=== PATIENT | female | born 1970 | race Caucasian/White ===

== ENCOUNTER → 2017-11-19 | Outpatient (CLI) | payer OTHER ==
--- NOTE | 2017-11-19 08:35 | DIAGNOSTIC IMAGING REPORT ---
GI SERIES W/AIR ROUTINE CLINICAL HISTORY: CYCLICAL VOMITINGnausea. Vomiting. COMPARISON STUDY: None FLUOROSCOPY TIME: 3.6 minutes. FINDINGS: The patient initiates swallowing function well. Esophagus is normal in course and caliber. There is a small hiatal hernia. There is moderate gastroesophageal reflux. Size and configuration stomach are normal. Duodenal bulb fills well and is negative for ulceration. Duodenal sweep is unremarkable. IMPRESSION: 1. Hiatal hernia. 2. Significant gastroesophageal reflux to the proximal one third of the esophagus. 3. Study is otherwise negative. The above report was generated using voice recognition software. It may contain grammatical, syntax or spelling errors. Electronically signed by: Florencio Mcdaniels M.D. 11/19/2017 8:33 AM Dictated Date/Time: 11/19/2017 8:32 AM
== END | disposition home or self-care (01) ==
LOC: C.RAD 08:00
PROVIDERS: ATTEND Internal Medicine Gastroenterology
DX: G43.A0 Cyclical vomiting, in migraine, not intractable (principal); K44.9 Diaphragmatic hernia without obstruction or gangrene; K21.9 Gastro-esophageal reflux disease without esophagitis

== ENCOUNTER → 2018-02-07 | Outpatient (CLI) | payer OTHER ==
--- NOTE | 2018-02-07 08:53 | DIAGNOSTIC IMAGING REPORT ---
(BARIUM SWALLOW) ESOPHAGUS CLINICAL HISTORY: VOMITING COMPARISON STUDY: Upper GI series 11/19/2017. FLUOROSCOPY TIME: 3.6 minutes.. 2 fluoroscopic spot images of the esophagus. FINDINGS: Contrast immediately passed into the esophagus into the stomach. There is no delay or residual contrast within the esophagus. IMPRESSION: Normal study. No delayed emptying into the stomach. Electronically signed by: Markell Payton M.D. 02/07/2018 8:39 AM Dictated Date/Time: 02/07/2018 8:37 AM
== END | disposition home or self-care (01) ==
LOC: C.RAD 08:08
PROVIDERS: ATTEND Student in an Organized Health Care Education/Training Program
DX: K22.4 Dyskinesia of esophagus (principal); G43.A0 Cyclical vomiting, in migraine, not intractable

== ENCOUNTER 2019-01-11 21:39 | Observation (INO) ==
[2019-01-11 22:50] LABS: Basophils # (auto) 0.04 K/uL (0-0.2); Basophils % (auto) 0.3 %; Eosinophils # (auto) 0.22 K/uL (0-0.5); Eosinophils % (auto) 1.5 %; Hematocrit (blood only) 34.6 % (37-47); Hemoglobin 12.1 g/dL (12.0-16.0); Immature Granulocytes # (auto) 0.04 K/uL (0.00-0.02); Immature Granulocytes % (auto) 0.3 %; Lymphocytes # (auto) 3.93 K/uL (1.2-3.4); Mean Corpuscular Volume 98.6 fL (80-100); Mean Platelet Volume 9.6 fL (7.4-10.4); Monocytes # (auto) 1.31 K/uL (0.11-0.59); Monocytes % (auto) 8.7 %; Neutrophils % (auto) 63.2 %; Platelet Count 314 K/uL (130-400); RDW Coefficient of Variation 13.5 % (11.5-14.5); RDW Standard Deviation 48.2 fL (36.4-46.3); Red Blood Count 3.51 M/uL (4.2-5.4); White Blood Count 15.14 K/uL (4.8-10.8)
[2019-01-11] MEDS ORDERED: SODIUM CHLORIDE 0.9% 1000ML 1,000 ML IV ONE (23:02)
[2019-01-11] MEDS ORDERED: MoRPHine SULFATE 10 MG/ML CARP/VIAL IV STA (23:02)
[2019-01-11 23:10] LABS: Albumin Level 3.4 gm/dl (3.4-5.0); BUN Creatinine Ratio 23.6 (10-20); Bilirubin Direct 0.1 mg/dl (0-0.2); Calcium 8.5 mg/dl (8.5-10.1); Creatinine Clr Calc Pharmacy 70.7 ml/min; Est GFR (African American) 98.8; Est GFR (Non-African American) 85.3; Potassium 3.5 mmol/L (3.5-5.1)
[2019-01-11 23:13] LABS: Bilirubin,Total 0.3 mg/dl (0.2-1); Globulin 3.3 gm/dl (2.5-4.0); Total Protein 6.7 gm/dl (6.4-8.2)
[2019-01-12] MEDS ORDERED: CIPROFLOXACIN 500 MG TAB PO STA (00:18)
[2019-01-12] MEDS ORDERED: metroNIDAZOLE 250 MG TAB PO STA (00:18)
[2019-01-12 00:31] LABS: Appearance Urine Cloudy (Clear); Bacteria Urine Automated Negative (Negative); Bilirubin Urine Negative (Negative); Blood Urine 1+ (Negative); Color Urine Yellow; Epithelial Cell Urine Auto >30 /lpf (0-5); Glucose Urine UA Negative (Negative); Ketones Urine Negative (Negative); Leukocyte Esterase Urine 2+ (Negative); Nitrite Urine Negative (Negative); Protein Urine Negative (Negative); Specific Gravity Urine 1.017 (1.000-1.030); Urobilinogen Urine Negative (Negative)
[2019-01-12] MEDS ORDERED: ONDANSETRON INJ 2 MG/ML 2 ML VIAL IV STA (00:37)
[2019-01-12] MEDS ORDERED: SODIUM CHLORIDE 0.9% 1000ML 500 ML IV ONE (00:37)
[2019-01-12] MEDS ORDERED: MoRPHine SULFATE 10 MG/ML CARP/VIAL IV STA (01:28)
[2019-01-12 01:45] LABS: Pregnancy Test, Urine Negative (Negative)
--- NOTE | 2019-01-12 02:11 | History & Physical Report ---
Date of Service January 12, 2019 Assessment & Plan (1) Epigastric abdominal pain: (2) History of ERCP: (3) Nausea: (4) Gastroparesis: (5) Spleen absent: (6) Cervical facet syndrome: (7) Hereditary spherocytosis: History of Present Illness Chief Complaint: Epigastric abdominal pain Primary Care Provider: Heidi Castle MD 48-year-old female with a past medical history hereditary spherocytosis, gastroparesis, colitis, C2-3 degenerative disc disease, colitis, pancreatic cyst, chronic pain syndrome, who presents to our ER with severe epigastric abdominal pain. She had an ERCP on 329 secondary to abnormal LFTs and suspected sphincter of Oddi dysfunction. She had a Botox injection to the pylorus, a pancreatic duct stent in the common bile duct stent placed by Dr. Marroquin. I n the ER they were unable to maintain her pain control so they asked us to place the patient under observation and continued care. She originally called Dr. Marroquin and he told her to report to the emergency room. She was found a white blood cell count of 15 and mild dehydration. Assessment and Plan Epigastric abdominal pain Status post ERCP on 01/10 with stent to the common bile duct and stent the pancreatic duct, Botox injection to the pylorus for duodenal spasm Gastroparesis Leukocytosis Nausea with retching Hypokalemia Hereditary spherocytosis Cervical facet syndrome I started the patient on Reglan 10 mg IV every 6 hours, Protonix 40 mg IV every 12, n.p.o. except for chips sips and meds, GI evaluation with Dr. Marroquin, monitor daily labs, GI cocktail every 6, morphine for pain, high index of suspicion of inflammation post ERCP, D5 normal with potassium, IV Toradol. ROS-No Headache, No Visual Changes, No Fever, No Chills, No Neck Pain or Stiffness, No Chest Pain, No Palpitations, No SOB, No HENNING, No Cough, No Sputum, No Wheezing, positive abdominal Pain radiating into the back around the right side, No Diarrhea, No Hematemesis, No Hemoptysis, No Unexpected Weight Loss, No Flank pain, No Melena, No Hematochezia, No Frequency, No Urgency, positive burning, No Hematuria, No Rashes, No Diaphoresis. Appetite is poor, positive nausea and retching Physical Exam Gen-AAO x 3, mild distress, Afebrile Head-NCAT, EOMI, PERRLA, Anicteric Sclera, No Posterior Pharyngeal Erythema Neck-Supple, No JVD, No Thyromegaly, No Masses, No LAD, No Bruits Lungs-Clear to Auscultation Bilaterally, No Rales, No Rhonchi, No Wheezing, No Crepitus Chest-No S4, +S1, +S2, No S3, No Murmurs, No Rubs, No Gallops, No Ectopy Abdomen-Soft, Bowel Sounds Present, Tender, Non Distended, No Hepatomegaly, No Splenomegaly, No Palpable Masses, No Rebound, No Rigidity, No Guarding Musculoskeletal-Full Range of Motion Bilaterally, No CVAT Extremities-No Cyanosis, No Clubbing, No Edema Nuero-Cranial Nerves II-XII grossly intact, Motor WNL, DTRs WNL, Strength WNL, No Focal Psych-Normal Mood PMH-hereditary spherocytosis, gastroparesis, colitis, C2-3 degenerative disc disease, pancreatic cyst, chronic pain syndrome, PSH-ERCP on 01/10, bladder surgery, cholecystectomy, Irina fundoplication, splenectomy, endometrial ablation FH-family history of diabetes in many family members, no cancers heart attacks or strokes SH-no tobacco, drugs, alcohol, she is and is a state employee Meds reviewed and Reconciled Labs Reviewed Allergies Allergy/AdvReac Type Severity Reaction Status Date / Time erythromycin base Allergy hives Verified 01/11/19 22:48 latex Allergy blisters Verified 01/11/19 22:48 Penicillins Allergy breathing Verified 01/11/19 22:48 issues sulfamethoxazole Allergy facial Verified 01/11/19 22:48 edema Home Medications Home Medications Medication Instructions Recorded Confirmed Type budesonide 3 mg PO BID 12/16/18 01/11/19 History multivitamin 1 tab PO QDD 12/16/18 01/11/19 History ondansetron 4 mg TRANSLINGUAL Q8 PRN 01/11/19 01/11/19 History oxycodone-acetaminophen [Percocet] 1 tab PO Q6 PRN 01/11/19 01/11/19 History Past Med/Surg History Medical History Spleen absent (Chronic) Hereditary spherocytosis (Chronic) Gastroparesis (Chronic) Colitis (Acute) Pancreatic cyst Surgical History History of ERCP History of bladder surgery (Chronic) History of cholecystectomy (Chronic) History of Irina fundoplication (Chronic) History of endometrial ablation Hx of splenectomy Family History Brother Family history of diabetes mellitus Brother Family history of diabetes mellitus Grandmother (Paternal) Family history of diabetes mellitus Social History Preferred Language: Greenlandic Beliefs That Will Affect Care: None marital status: Current Living Situation: Spouse current occupational status: employed Feels Safe at Home: Yes Smoking Status: Never smoker Hx Alcohol Use: Yes (socially ) Physical Exam Vital Signs (Past 24 Hours): Last Vital Signs Temp 36.7 C 01/11/19 21:40 Pulse 62 01/12/19 00:14 Resp 16 01/12/19 00:14 BP 101/58 L 01/12/19 00:14 Pulse Ox 96 01/12/19 00:14 Results & Data Laboratory Results Allergies erythromycin base Allergy (Verified 01/11/19 22:48) hives latex Allergy (Verified 01/11/19 22:48) blisters Penicillins Allergy (Verified 01/11/19 22:48) breathing issues sulfamethoxazole Allergy (Verified 01/11/19 22:48) facial edema Height/Weight/Isolation Height 5 ft 1 in Weight 61.5 kg CBC 01/11/19 01/11/19 01/11/19 22:19 22: 23:40 WBC 15.14 H RBC 3.51 L Hgb 12.1 Hct 34.6 L MCV 98.6 MCH 34.5 H MCHC 35.0 RDW Std Deviation 48.2 H RDW Coeff of [place] 13.5 Plt Count 314 MPV 9.6 Immature Gran % (Auto) 0.3 Neut % (Auto) 63.2 Lymph % (Auto) 26.0 [place] % (Auto) 8.7 Eos % (Auto) 1.5 Baso % (Auto) 0.3 Immature Gran # (Auto) 0.04 H Neut # (Auto) 9.60 H Lymph # (Auto) 3.93 H [place] # (Auto) 1.31 H Eos # (Auto) 0.22 Baso # (Auto) 0.04 Sodium 142 Potassium 3.5 Chloride 108 H Carbon Dioxide 29 Anion Gap 5.0 BUN 19 H Creatinine 0.81 Est Cr Clr Drug Dosing 70.7 Est GFR ( Amer) 98.8 Est GFR (Non-Af Amer) 85.3 BUN/Creatinine Ratio 23.6 H Glucose 91 Calcium 8.5 Total Bilirubin 0.3 Direct Bilirubin 0.1 AST 22 ALT 34 Alkaline Phosphatase 81 Total Protein 6.7 Albumin 3.4 Globulin 3.3 Albumin/Globulin Ratio 1.0 Lipase 241 Urine Color Urine Appearance Urine pH POC Urine pH 5 Ur Specific [place] Urine Protein POC Urine Protein Trace H Urine Glucose (UA) POC Ur Glucose (UA) Normal Urine Ketones POC Urine Ketones Negative Urine Blood POC Urine Blood 250 H Urine Nitrite POC Urine Nitrite Positive H Urine Bilirubin Urine Urobilinogen Ur Leukocyte Esterase POC U Leukocyte Esteras Negative Urine WBC (Auto) Urine RBC (Auto) U Hyaline Cast (Auto) U Epithel Cells (Auto) Urine Bacteria (Auto) Urine Test POC Ur Test 01/11/19 01/11/19 01/11/19 23:40 23:40 23:40 WBC RBC Hgb Hct MCV MCH MCHC RDW Std Deviation RDW Coeff of [place] Plt Count MPV Immature Gran % (Auto) Neut % (Auto) Lymph % (Auto) [place] % (Auto) Eos % (Auto) Baso % (Auto) Immature Gran # (Auto) Neut # (Auto) Lymph # (Auto) [place] # (Auto) Eos # (Auto) Baso # (Auto) Sodium Potassium Chloride Carbon Dioxide Anion Gap BUN Creatinine Est Cr Clr Drug Dosing Est GFR ( Amer) Est GFR (Non-Af Amer) BUN/Creatinine Ratio Glucose Calcium Total Bilirubin Direct Bilirubin AST ALT Alkaline Phosphatase Total Protein Albumin Globulin Albumin/Globulin Ratio Lipase Urine Color Yellow Urine Appearance Cloudy H Urine pH 6.0 POC Urine pH Ur Specific [place] 1.017 Urine Protein Negative POC Urine Protein Urine Glucose (UA) Negative POC Ur Glucose (UA) Urine Ketones Negative POC Urine Ketones Urine Blood 1+ H POC Urine Blood Urine Nitrite Negative POC Urine Nitrite Urine Bilirubin Negative Urine Urobilinogen Negative Ur Leukocyte Esterase 2+ H POC U Leukocyte Esteras Urine WBC (Auto) 10-30 H Urine RBC (Auto) 5-10 H U Hyaline Cast (Auto) 1-5 U Epithel Cells (Auto) >30 H Urine Bacteria (Auto) Negative Urine Test Negative POC Ur Test NEG Chemistry 01/11/19 22:19 Sodium 142 Potassium 3.5 Chloride 108 H Carbon Dioxide 29 Anion Gap 5.0 BUN 19 H Creatinine 0.81 Glucose 91 Urinalysis 01/11/19 23:40 Urine Color Yellow Urine Appearance Cloudy H Urine pH 6.0 Ur Specific [place] 1.017 Urine Protein Negative Urine Glucose (UA) Negative Urine Ketones Negative Urine Blood 1+ H Urine Nitrite Negative Urine Bilirubin Negative Microbiology 01/11/19 23:40 Urine,Clean Catch Urine Culture - Pending
[2019-01-12] MEDS ORDERED: OXYCODONE/ACETAMINOPHEN 5mg/325mg TAB PO PRN (04:02)
[2019-01-12] MEDS ORDERED: KETOROLAC 30 MG/ML VIAL IV PRN (04:02)
[2019-01-12] MEDS ORDERED: ALUMINUM/MAGNESIUM SUSP 72 ML, LIDOCAINE HCL VISCOUS 2% 24 ML, BARCODE IDENTIFIER 1 EA PO PRN (04:02)
[2019-01-12] MEDS ORDERED: POLYETHYLENE (MIRALAX) 17 GM PACK PO PRN ×2 (04:02→14:31)
[2019-01-12] MEDS ORDERED: ALUMINUM/MAGNESIUM SUSP 30 ML UDC PO PRN (04:02)
[2019-01-12] MEDS ORDERED: ONDANSETRON 4 MG OD TAB SL PRN (04:02)
[2019-01-12] MEDS ORDERED: POTASSIUM CHLORIDE IV SCH (04:30)
[2019-01-12] MEDS ORDERED: D5W AND NSS IV SCH (04:30)
[2019-01-12] MEDS ORDERED: METOCLOPRAMIDE HCL INJ 5 MG/ML 2 ML VIAL ONE (04:50)
--- NOTE | 2019-01-12 06:16 | Emergency Department Note ---
Entered by Elizabeth Abreu acting as a scribe for ED Provider Note Name: Renuka Loaiza Age: 48 F Arrives Via: Private vehicle Informant: The patient CC: Abdominal pain HPI: A 48 year old female arrives for evaluation of abdominal pain starting 1 day ago. The patient reports that she has a burning upper abdominal pain. She states that her abdominal pain radiates to her back. She notes that she is na useous. The patient reports that she ate yogurt that worsened her pain. She states that moving around worsens her pain. She notes that she took Ibuprofen and Zofran RN HEMODIALYSIS neither of which relieved her abdominal pain. She adds that she had pancreatitis 9 months ago and that she is at high risk for developing it again. She reports that her symptoms today are not as bad as when she had pancreatitis in the past. She denies chest pain, syncope, dysuria, diarrhea, shortness of breath and fever. ROS: See above HPI for pertinent positives & negatives. A total of 10 systems reviewed and were otherwise negative. Past Medical History: Gastroparesis, Colitis, Pancreatic cyst, Hereditary spherpcytosis Past Surgical History: ERCP, Splenectomy, cholecystectomy, Irina fundoplication, endometrial ablation. Family History: Diabetes. Social History: Lives with spouse at home. Feels safe at home. Never a smoker. Home Medications: Budesonide 3 mg PO, Multivitamin 1 tab PO, Ondansetron 4 mg TRANS, Percocet 1 tab PO. Allergies Erythromycin base, Latex, Penicillins, Sulfamthoxazole. Physical: Vitals: BP: 128/63, Pulse: 97, Resp: 16, Temp: 98.1F, O2 Sat: 100, Delivery: Room Air Exam: GENERAL: Patient is uncomfortable appearing and in mild distress. EYES: No scleral icterus, unremarkable pupils. ENT: Mucous membranes moist, no nasal congestion. NECK: No masses appreciated, no meningismus, trachea is midline. RESPIRATORY: No dyspnea. Clear to auscultation and equal bilaterally. No wheeze, no rhonchi. CARDIOVASCULAR: Regular rate and rhythm. No murmurs, rubs, gallops appreciated. GASTROINTESTINAL: Abdomen soft, no peritonitis. Bowel sounds positive. No masses appreciated. Epigastric and RUQ tenderness to palpation. BACK: Mild bilateral CVA tenderness to palpation. EXTREMITIES: Normal motion all extremities, no cyanosis, no edema. NEUROLOGIC: Alert and oriented, no acute motor or sensory deficits, no focal weakness, cranial nerves grossly intact. SKIN: No rash, no jaundice, no diaphoresis. ED Course: 2300: Prior Medical Record, Triage/Nursing Notes, Medications, Allergies reviewed by Me. Past medical records reviewed. The patient was evaluated in room D2A, and a complete history and physical examination were performed. 2320: I reviewed the patient's case with Dr. Cara DEL CASTILLO who advises that imaging is not necessary. He reports that if the patient is able to tolerate PO and pain is controlled she can be discharged given her lab findings. He asks that the patient be started on Cipro and Flagil. 0003: Dr. Marroquin evaluated the KUB and agrees stent is in proper location and that the patient has a significant amount of stool throughout the colon. He confirmed the Cipro and Flagil treatment and that the patient should follow up with him as an outpatient. 0017: I reevaluated the patient at this time who is feeling better and is requesting to go home. 0037: I reevaluated the patient at this time who was able to eat crackles but is now severely nauseous. 0128: I reevaluated the patient at this time whose pain has returned. She does not feel comfortable going home. 0130: I reviewed the patient's case with Dr. Cho - [facility] hospitalist. He will evaluate the patient for further management. Vital Signs: reviewed and remarkable for wnl Labs: Reviewed and remarkable for normal Lipase, WBC 15 Interventions: Saline Lock, Morphien 6mg IV x 2, Zofran 4mg IV x 2, Cipro 500mg PO, Flagyl 500mg PO Imaging: X ray results are stated below per my interpretation: KUBB: 1 view: No clear evidence obstruction. Moderate amount stool burden to colon. Biliary stent appears satisfactory location. Amrita from previous surgeries noted RUQ and LUQ. Consults: GI and Hospilist Blood pressure: Normal. No Referral necessary Disposition: hospitalization Differentials: Pancreatitis cholangitis, aortic dissection/rutupture, gastritis, colitis, perforated bowel amongst other pathologies. Medical Decision Making: Pleasant 48 yr old female with complex GI history with previous splenectomy, cholecystectomy, fundo and then yesterday ERCP for sphincter enio issues and biliary stenting. Arrives worsening epigastric pain wrapping right flank to back. Mild wbc elevation though on chronic steroids. She was given morphine and initially feeling better. Reviewed with GI who felt that starting abx indicated given immunosuppression, mild wbc elevation and her recent procedure. Patient given these but symptoms returned quite rapidly. Requiring further pain/nausea meds. Reviewed with hospitalist who will evaluate further. Will hold off on imaging at this moment given no clear evidence surgical abdomen at this time, but will defer further work-up to hospitalist. She is stable though uncomfortable. Impression: Post Operative Pain Epigastric abdominal pain Jeancarlos Morales MD The scribe's documentation has been prepared under my direction and personally reviewed by me in its entirety. I confirm that the note above accurately reflects all work, treatment, procedures, and medical decision making performed by me. Impression & Plan Post-operative pain, Epigastric abdominal pain Past Med/Surg History Medical History Spleen absent (Chronic) Hereditary spherocytosis (Chronic) Gastroparesis (Chronic) Colitis (Acute) Pancreatic cyst Surgical History History of ERCP History of bladder surgery (Chronic) History of cholecystectomy (Chronic) History of Irina fundoplication (Chronic) History of endometrial ablation Hx of splenectomy Family History Brother Family history of diabetes mellitus Brother Family history of diabetes mellitus Grandmother (Paternal) Family history of diabetes mellitus Social History Preferred Language: Uzbek Communication Ability: Effective Talent Management Manager Required: No Beliefs That Will Affect Care: None marital status: Current Living Situation: Family current occupational status: employed Feels Safe at Home: Yes Safety Concerns: Feels Safe At This Time Smoking Status: Never smoker Hx Alcohol Use: Yes Hx Substance Use: No Results & Data Vital Signs Vital Signs - 24 hr 01/11/19 21:40 01/12/19 00:14 01/12/19 01:46 Temperature 36.7 C Temperature Source Oral Sepsis Action Taken by Nursing No Action Required Pulse Rate 97 H Pulse Rate [Right Finger] 62 Pulse Rate from SpO2 Sensor 58 L Pulse Rhythm [Right Finger] Pulse Strength [Right Finger] Respiratory Rate 16 16 Respiratory Effort / Characteristics Non-Labored Non-Labored Spontaneous Respiratory Depth Normal Normal Respiratory Pattern Regular Blood Pressure 128/63 122/76 Blood Pressure [Right Arm] 101/58 L Blood Pressure Mean 84 91 Blood Pressure Mean [Right Arm] 72 Blood Pressure Position [Right Arm] Pulse Oximetry 100 96 97 Oxygen Delivery Method Room Air Room Air 01/12/19 01:50 01/12/19 02:01 01/12/19 02:10 Temperature Temperature Source Sepsis Action Taken by Nursing Pulse Rate Pulse Rate [Right Finger] Pulse Rate from SpO2 Sensor 64 59 L 54 L Pulse Rhythm [Right Finger] Pulse Strength [Right Finger] Respiratory Rate Respiratory Effort / Characteristics Respiratory Depth Respiratory Pattern Blood Pressure Blood Pressure [Right Arm] Blood Pressure Mean Blood Pressure Mean [Right Arm] Blood Pressure Position [Right Arm] Pulse Oximetry 93 93 95 Oxygen Delivery Method 01/12/19 02:20 01/12/19 04:23 Temperature 36.8 C Temperature Source Oral Sepsis Action Taken by Nursing Pulse Rate Pulse Rate [Right Finger] 54 L Pulse Rate from SpO2 Sensor 67 Pulse Rhythm [Right Finger] Regular Pulse Strength [Right Finger] Normal Respiratory Rate 16 Respiratory Effort / Characteristics Non-Labored Spontaneous Respiratory Depth Normal Respiratory Pattern Blood Pressure Blood Pressure [Right Arm] 117/79 Blood Pressure Mean Blood Pressure Mean [Right Arm] 91 Blood Pressure Position [Right Arm] Lying Pulse Oximetry 96 98 Oxygen Delivery Method Room Air Home Medications Current Medication List: was personally reviewed by me Laboratory Data Attestation: I reviewed the patient's lab results. Result diagrams: 01/11/19 22:19 01/11/19 22:19 Lab Results 01/11/19 01/11/19 01/11/19 Range/Units 22:19 22:19 23:40 WBC 15.14 H (4.8-10.8) K/uL RBC 3.51 L (4.2-5.4) M/uL Hgb 12.1 (12.0-16.0) g/dL Hct 34.6 L (37-47) % MCV 98.6 (80-100) fL MCH 34.5 H (25-34) pg MCHC 35.0 (32-36) g/dL RDW Std Deviation 48.2 H (36.4-46.3) fL RDW Coeff of [place] 13.5 (11.5-14.5) % Plt Count 314 (130-400) K/uL MPV 9.6 (7.4-10.4) fL Immature Gran % (Auto) 0.3 % Neut % (Auto) 63.2 % Lymph % (Auto) 26.0 % Ness % (Auto) 8.7 % Eos % (Auto) 1.5 % Baso % (Auto) 0.3 % Immature Gran # (Auto) 0.04 H (0.00-0.02) K/uL Neut # (Auto) 9.60 H (1.4-6.5) K/uL Lymph # (Auto) 3.93 H (1.2-3.4) K/uL [place] # (Auto) 1.31 H (0.11-0.59) K/uL Eos # (Auto) 0.22 (0-0.5) K/uL Baso # (Auto) 0.04 (0-0.2) K/uL Sodium 142 (136-145) mmol/L Potassium 3.5 (3.5-5.1) mmol/L Chloride 108 H (98-107) mmol/L Carbon Dioxide 29 (21-32) mmol/L Anion Gap 5.0 (3-11) BUN 19 H (7-18) mg/dl Creatinine 0.81 (0.6-1.2) mg/dl Est Cr Clr Drug Dosing 70.7 ml/min Est GFR ( Amer) 98.8 Est GFR (Non-Af Amer) 85.3 BUN/Creatinine Ratio 23.6 H (10-20) Glucose 91 (70-99) mg/dl Calcium 8.5 (8.5-10.1) mg/dl Total Bilirubin 0.3 (0.2-1) mg/dl Direct Bilirubin 0.1 (0-0.2) mg/dl AST 22 (15-37) U/L ALT 34 (12-78) U/L Alkaline Phosphatase 81 (45-117) U/L Total Protein 6.7 (6.4-8.2) gm/dl Albumin 3.4 (3.4-5.0) gm/dl Globulin 3.3 (2.5-4.0) gm/dl Albumin/Globulin Ratio 1.0 (0.9-2) Lipase 241 (73-393) U/L Urine Color Urine Appearance (Clear) Urine pH (4.5-7.5) POC Urine pH 5 (4.5-7.5) Ur Specific [place] (1.000-1.030) Urine Protein (Negative) POC Urine Protein Trace H (Negative) Urine Glucose (UA) (Negative) POC Ur Glucose (UA) Normal (Normal) Urine Ketones (Negative) POC Urine Ketones Negative (Negative) Urine Blood (Negative) POC Urine Blood 250 H (Negative) Urine Nitrite (Negative) POC Urine Nitrite Positive H (Negative) Urine Bilirubin (Negative) Urine Urobilinogen (Negative) Ur Leukocyte Esterase (Negative) POC U Leukocyte Esteras Negative (Negative) Urine WBC (Auto) (0-5) /hpf Urine RBC (Auto) (0-4) /hpf U Hyaline Cast (Auto) (0-5) /lpf U Epithel Cells (Auto) (0-5) /lpf Urine Bacteria (Auto) (Negative) Urine Test (Negative) POC Ur Test (NEG) 01/11/19 01/11/19 01/11/19 Range/Units 23:40 23:40 23:40 WBC (4.8-10.8) K/uL RBC (4.2-5.4) M/uL Hgb (12.0-16.0) g/dL Hct (37-47) % MCV (80-100) fL MCH (25-34) pg MCHC (32-36) g/dL RDW Std Deviation (36.4-46.3) fL RDW Coeff of [place] (11.5-14.5) % Plt Count (130-400) K/uL MPV (7.4-10.4) fL Immature Gran % (Auto) % Neut % (Auto) % Lymph % (Auto) % [place]ess % (Auto) % Eos % (Auto) % Baso % (Auto) % Immature Gran # (Auto) (0.00-0.02) K/uL Neut # (Auto) (1.4-6.5) K/uL Lymph # (Auto) (1.2-3.4) K/uL Ness # (Auto) (0.11-0.59) K/uL Eos # (Auto) (0-0.5) K/uL Baso # (Auto) (0-0.2) K/uL Sodium (136-145) mmol/L Potassium (3.5-5.1) mmol/L Chloride (98-107) mmol/L Carbon Dioxide (21-32) mmol/L Anion Gap (3-11) BUN (7-18) mg/dl Creatinine (0.6-1.2) mg/dl Est Cr Clr Drug Dosing ml/min Est GFR ( Amer) Est GFR (Non-Af Amer) BUN/Creatinine Ratio (10-20) Glucose (70-99) mg/dl Calcium (8.5-10.1) mg/dl Total Bilirubin (0.2-1) mg/dl Direct Bilirubin (0-0.2) mg/dl AST (15-37) U/L ALT (12-78) U/L Alkaline Phosphatase (45-117) U/L Total Protein (6.4-8.2) gm/dl Albumin (3.4-5.0) gm/dl Globulin (2.5-4.0) gm/dl Albumin/Globulin Ratio (0.9-2) Lipase (73-393) U/L Urine Color Yellow Urine Appearance Cloudy H (Clear) Urine pH 6.0 (4.5-7.5) POC Urine pH (4.5-7.5) Ur Specific [place] 1.017 (1.000-1.030) Urine Protein Negative (Negative) POC Urine Protein (Negative) Urine Glucose (UA) Negative (Negative) POC Ur Glucose (UA) (Normal) Urine Ketones Negative (Negative) POC Urine Ketones (Negative) Urine Blood 1+ H (Negative) POC Urine Blood (Negative) Urine Nitrite Negative (Negative) POC Urine Nitrite (Negative) Urine Bilirubin Negative (Negative) Urine Urobilinogen Negative (Negative) Ur Leukocyte Esterase 2+ H (Negative) POC U Leukocyte Esteras (Negative) Urine WBC (Auto) 10-30 H (0-5) /hpf Urine RBC (Auto) 5-10 H (0-4) /hpf U Hyaline Cast (Auto) 1-5 (0-5) /lpf U Epithel Cells (Auto) >30 H (0-5) /lpf Urine Bacteria (Auto) Negative (Negative) Urine Test Negative (Negative) POC Ur Test NEG (NEG) Administered Medications Potassium Chloride 30 meq/ (Dextrose/Sodium Chloride) 1,015 mls @ 85 mls/hr IV .[id number] ES Stop: 02/11/19 04:29 Last Admin: 01/12/19 04:57 Dose: 85 mls/hr Documented by: [id number] Ketorolac Tromethamine (Toradol) 30 mg IV Q6H PRN PRN Reason: Pain Stop: 01/17/19 04:01 Last Admin: 01/12/19 05:07 Dose: 30 mg Documented by: [id number] Discontinued Medications Ciprofloxacin (Cipro) 500 mg PO NOW STA Stop: 01/12/19 00:19 Last Admin: 01/12/19 00:23 Dose: 500 mg Documented by: [id number] Sodium Chloride (Nss 1000ml) 1,000 mls @ 999 mls/hr IV .Q1H1M ONE Stop: 01/12/19 00:02 Last Infusion: 01/12/19 00:36 Dose: 0 mls/hr Documented by: [id number] Admin: 01/11/19 23:43 Dose: 999 mls/hr Documented by: [id number] Sodium Chloride (Nss 1000ml) 500 mls @ 999 mls/hr IV .Q31M ONE Stop: 01/12/19 01:07 Last Infusion: 01/12/19 01:20 Dose: 0 mls/hr Documented by: [id number] Admin: 01/12/19 00:43 Dose: 999 mls/hr Documented by: [id number] Metoclopramide HCl (Reglan) Confirm Administered Dose 10 mg .ROUTE .STK-MED ONE Stop: 01/12/19 04:51 Last Admin: 01/12/19 04:57 Dose: 10 mg Documented by: [id number] Metronidazole (Flagyl) 500 mg PO NOW STA Stop: 01/12/19 00:19 Last Admin: 01/12/19 00:23 Dose: 500 mg Documented by: [id number] Morphine Sulfate (Morphine Sulfate) 6 mg IV NOW STA Stop: 01/11/19 23:03 Last Admin: 01/11/19 23:43 Dose: 6 mg Documented by: [id number] Morphine Sulfate (Morphine Sulfate) 6 mg IV NOW STA Stop: 01/12/19 01:29 Last Admin: 01/12/19 01:45 Dose: 6 mg Documented by: [id number] Ondansetron HCl (Zofran) 4 mg IV NOW STA Stop: 01/12/19 00:38 Last Admin: 01/12/19 00:43 Dose: 4 mg Documented by: [id number] Blood Pressure Blood Pressure Findings: Low blood pressure Blood Pressure Disposition: further management by hospitalist Discharge Plan Visit Data *Final* Discharge Date/Time: 01/12/19 02:52 Chief Complaint: Referred by Doctor Stated Complaint: ABDOMINAL PAIN - REFERRED BY DOCTOR ED Provider: Jeancarlos Morales Discharge Problem: Post-operative pain, Epigastric abdominal pain Patient Disposition: Admitted As Inpatient The scribe's documentation has been prepared under my direction and personally reviewed by me in its entirety. I confirm that the note above accurately reflects all work, treatment, procedures, and medical decision making performed by me.
[2019-01-12 06:44] LABS: Hematocrit (blood only) 34.5 % (37-47); Hemoglobin 11.9 g/dL (12.0-16.0); Mean Corpuscular Hgb Conc 34.5 g/dL (32-36); Mean Corpuscular Volume 97.5 fL (80-100); Mean Platelet Volume 9.6 fL (7.4-10.4); Platelet Count 295 K/uL (130-400); RDW Coefficient of Variation 13.5 % (11.5-14.5); Red Blood Count 3.54 M/uL (4.2-5.4); White Blood Count 15.71 K/uL (4.8-10.8)
--- NOTE | 2019-01-12 06:45 | XRay Report ---
KUB HISTORY: Acute epigastric abdominal pain post ERCP stenting, epigastric pain COMPARISON: ERCP images 01/10/2019 FINDINGS: The bowel gas pattern is non-obstructive. Moderate volume of formed stool noted throughout the colon. There are 2 stents noted in the upper abdomen suggestive of common bile duct stent and pro bable pancreatic stent. Surgical clips of the pelvis and bilateral upper quadrants of the abdomen. Th ere is no organomegaly. No renal calculi. No ureteral calculi. No pneumoperitoneum or pneumatosis. N o fracture. IMPRESSION: 1. Nonobstructive bowel gas pattern. 2. Suggested constipation. 3. Postoperative findings as above. Electronically signed by: Edgar Rosa M.D. 01/12/2019 6:44 AM
[2019-01-12 07:11] LABS: BUN Creatinine Ratio 23.2 (10-20); Calcium 7.9 mg/dl (8.5-10.1); Creatinine Clr Calc Pharmacy 100.8 ml/min; Est GFR (African American) 126.2; Est GFR (Non-African American) 108.9; Potassium 3.2 mmol/L (3.5-5.1)
[2019-01-12 07:14] LABS: Bilirubin,Total 0.4 mg/dl (0.2-1); Globulin 3.1 gm/dl (2.5-4.0); Total Protein 6.1 gm/dl (6.4-8.2)
[2019-01-12] MEDS ORDERED: PANTOprazole 40 MG in SYRINGE 0 ML IV SCH (09:00)
[2019-01-12] MEDS ORDERED: BUDESONIDE EC 3 MG CAP PO SCH (09:00)
[2019-01-12] MEDS ORDERED: POLYETHYLENE (MIRALAX) 17 GM PACK PO STA (09:11)
--- NOTE | 2019-01-12 10:11 | Gastrointestinal Consultation ---
Date of Consultation January 12, 2019 Assessment & Plan (1) Epigastric abdominal pain: No evidence of any post procedureal complication, normal lipase almost rules out pancreatitis, her mild leukocytosis is secondary to Budesonide. No fever or signs of infrection. Her pain is likely related to constipation with air traping after the procedure and her underlying gastroparesis. Plan: She feels fine to go home today. PRN Antiemetics. Start Miralax. PO Diet as tolerated. Give only 3 days of PO Cipro/Flagyl. Recall GI if any questions or concerns. She is scheduled for follow up with me in the office already. 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 She is also on Budesonide for Eosinophilic colitis. She was fin yesterday and had some epigastric pain, initially responded to Percocet but then she came to the ED in the night, her labs were actually normal, Normal LFTs and Lipase, KUB with stents in place, there was significant constipation and stool burden. She was given IV ABx and fluids and today she feels good, no more abdominal pain, no nausea or vomiting and moved her bowel which gave her relief. Allergies Allergy/AdvReac Type Severity Reaction Status Date / Time erythromycin base Allergy hives Verified 01/11/19 22:48 latex Allergy blisters Verified 01/11/19 22:48 Penicillins Allergy breathing Verified 01/11/19 22:48 issues sulfamethoxazole Allergy facial Verified 01/11/19 22:48 edema Home Medications Home Medications Medication Instructions Recorded Confirmed Type budesonide 3 mg PO BID 12/16/18 01/11/19 History multivitamin 1 tab PO QDD 12/16/18 01/11/19 History ondansetron 4 mg TRANSLINGUAL Q8 PRN 01/11/19 01/11/19 History oxycodone-acetaminophen [Percocet] 1 tab PO Q6 PRN 01/11/19 01/11/19 History Patient History Medical History Spleen absent (Chronic) Hereditary spherocytosis (Chronic) Gastroparesis (Chronic) Colitis (Acute) Pancreatic cyst Surgical History History of ERCP History of bladder surgery (Chronic) History of cholecystectomy (Chronic) History of Irina fundoplication (Chronic) History of endometrial ablation Hx of splenectomy Family History Brother Family history of diabetes mellitus Brother Family history of diabetes mellitus Grandmother (Paternal) Family history of diabetes mellitus Social History Preferred Language: Sami Communication Ability: Effective Investor Relations Specialist Required: No Beliefs That Will Affect Care: None marital status: Current Living Situation: Family current occupational status: employed Feels Safe at Home: Yes Safety Concerns: Feels Safe At This Time Smoking Status: Never smoker Hx Alcohol Use: Yes Hx Substance Use: No Review of Systems Constitutional: no fever, no chills, no fatigue and no weight loss Eyes: no eye pain and no worsening vision Ear, Nose, Mouth, Throat: no tinnitus, no dizziness, no nasal discharge and no epistaxis Respiratory: no cough, no dyspnea, no dyspnea on exertion and no wheezing Cardiovascular: no chest pain, no orthopnea, no palpitations and no edema Gastrointestinal: as per Subjective / HPI Genitourinary (Female): no dysuria, no urinary frequency, no urinary incontinence and no hematuria Musculoskeletal: no stiffness and no myalgia Neurologic: no localized weakness, no paralysis, no tremor(s) and no headache(s) Endocrine: no polydipsia and no polyuria Hematologic / Lymphatic: no easy bleeding and no night sweats Physical Exam Vital Signs (Past 24 Hours): Last Vital Signs Temp 36.6 C 01/12/19 07:23 Pulse 62 01/12/19 07:23 Resp 16 01/12/19 07:23 BP 104/70 01/12/19 07:23 Pulse Ox 91 01/12/19 07:23 Constitutional: + well hydrated, cooperative and comfortable Eyes: PERRL, conjunctivae normal, anicteric sclerae ENMT: external ear and nose normal, oropharynx normal Neck: normal visual inspection and trachea midline Respiratory: normal respiratory effort, lungs clear to auscultation Auscultation: no wheezes Cardiovascular: RRR, no murmur, no edema Gastrointestinal (Abdomen): normal bowel sounds, soft, nontender, no hepatosplenomegaly Musculoskeletal: no cyanosis or clubbing, extremities motor strength 5/5 Skin: no rashes, warm and dry Neurologic: awake; no focal motor deficits Motor/Sensory: no tremor Results & Data Laboratory Results Laboratory Results - last 24 hr 01/11/19 01/11/19 01/11/19 22:19 22:19 23:40 WBC 15.14 H RBC 3.51 L Hgb 12.1 Hct 34.6 L MCV 98.6 MCH 34.5 H MCHC 35.0 RDW Std Deviation 48.2 H RDW Coeff of [place] 13.5 Plt Count 314 MPV 9.6 Immature Gran % (Auto) 0.3 Neut % (Auto) 63.2 Lymph % (Auto) 26.0 [place] % (Auto) 8.7 Eos % (Auto) 1.5 Baso % (Auto) 0.3 Immature Gran # (Auto) 0.04 H Neut # (Auto) 9.60 H Lymph # (Auto) 3.93 H [place] # (Auto) 1.31 H Eos # (Auto) 0.22 Baso # (Auto) 0.04 Sodium 142 Potassium 3.5 Chloride 108 H Carbon Dioxide 29 Anion Gap 5.0 BUN 19 H Creatinine 0.81 Est Cr Clr Drug Dosing 70.7 Est GFR ( Amer) 98.8 Est GFR (Non-Af Amer) 85.3 BUN/Creatinine Ratio 23.6 H Glucose 91 Calcium 8.5 Total Bilirubin 0.3 Direct Bilirubin 0.1 AST 22 ALT 34 Alkaline Phosphatase 81 Total Protein 6.7 Albumin 3.4 Globulin 3.3 Albumin/Globulin Ratio 1.0 Lipase 241 Urine Color Urine Appearance Urine pH POC Urine pH 5 Ur Specific [place] Urine Protein POC Urine Protein Trace H Urine Glucose (UA) POC Ur Glucose (UA) Normal Urine Ketones POC Urine Ketones Negative Urine Blood POC Urine Blood 250 H Urine Nitrite POC Urine Nitrite Positive H Urine Bilirubin Urine Urobilinogen Ur Leukocyte Esterase POC U Leukocyte Esteras Negative Urine WBC (Auto) Urine RBC (Auto) U Hyaline Cast (Auto) U Epithel Cells (Auto) Urine Bacteria (Auto) Urine Test POC Ur Test 01/11/19 01/11/19 01/11/19 23:40 23:40 23:40 WBC RBC Hgb Hct MCV MCH MCHC RDW Std Deviation RDW Coeff of [place] Plt Count MPV Immature Gran % (Auto) Neut % (Auto) Lymph % (Auto) [place] % (Auto) Eos % (Auto) Baso % (Auto) Immature Gran # (Auto) Neut # (Auto) Lymph # (Auto) [place] # (Auto) Eos # (Auto) Baso # (Auto) Sodium Potassium Chloride Carbon Dioxide Anion Gap BUN Creatinine Est Cr Clr Drug Dosing Est GFR ( Amer) Est GFR (Non-Af Amer) BUN/Creatinine Ratio Glucose Calcium Total Bilirubin Direct Bilirubin AST ALT Alkaline Phosphatase Total Protein Albumin Globulin Albumin/Globulin Ratio Lipase Urine Color Yellow Urine Appearance Cloudy H Urine pH 6.0 POC Urine pH Ur Specific [place] 1.017 Urine Protein Negative POC Urine Protein Urine Glucose (UA) Negative POC Ur Glucose (UA) Urine Ketones Negative POC Urine Ketones Urine Blood 1+ H POC Urine Blood Urine Nitrite Negative POC Urine Nitrite Urine Bilirubin Negative Urine Urobilinogen Negative Ur Leukocyte Esterase 2+ H POC U Leukocyte Esteras Urine WBC (Auto) 10-30 H Urine RBC (Auto) 5-10 H U Hyaline Cast (Auto) 1-5 U Epithel Cells (Auto) >30 H Urine Bacteria (Auto) Negative Urine Test Negative POC Ur Test NEG 01/12/19 01/12/19 06:20 06:20 WBC 15.71 H RBC 3.54 L Hgb 11.9 L Hct 34.5 L MCV 97.5 MCH 33.6 MCHC 34.5 RDW Std Deviation 48.0 H RDW Coeff of [place] 13.5 Plt Count 295 MPV 9.6 Immature Gran % (Auto) Neut % (Auto) Lymph % (Auto) [place] % (Auto) Eos % (Auto) Baso % (Auto) Immature Gran # (Auto) Neut # (Auto) Lymph # (Auto) [place] # (Auto) Eos # (Auto) Baso # (Auto) Sodium 143 Potassium 3.2 L Chloride 111 H Carbon Dioxide 28 Anion Gap 5.0 BUN 13 Creatinine 0.57 L Est Cr Clr Drug Dosing 100.8 Est GFR ( Amer) 126.2 Est GFR (Non-Af Amer) 108.9 BUN/Creatinine Ratio 23.2 H Glucose 117 H Calcium 7.9 L Total Bilirubin 0.4 Direct Bilirubin AST 26 ALT 37 Alkaline Phosphatase 73 Total Protein 6.1 L Albumin 3.0 L Globulin 3.1 Albumin/Globulin Ratio 1.0 Lipase Urine Color Urine Appearance Urine pH POC Urine pH Ur Specific [place] Urine Protein POC Urine Protein Urine Glucose (UA) POC Ur Glucose (UA) Urine Ketones POC Urine Ketones Urine Blood POC Urine Blood Urine Nitrite POC Urine Nitrite Urine Bilirubin Urine Urobilinogen Ur Leukocyte Esterase POC U Leukocyte Esteras Urine WBC (Auto) Urine RBC (Auto) U Hyaline Cast (Auto) U Epithel Cells (Auto) Urine Bacteria (Auto) Urine Test POC Ur Test
[2019-01-12] MEDS ORDERED: METOCLOPRAMIDE HCL INJ 5 MG/ML 2 ML VIAL IV SCH (11:00)
--- NOTE | 2019-01-12 14:12 | Hospitalist Progress Note ---
Date of Service January 12, 2019 Assessment & Plan (1) Epigastric abdominal pain: Abdominal pain H/O Gastroparesis Recent ERCP on 01/10 with stent to the common bile duct and stent the pancreatic duct, Botox injection to the pylorus for duodenal spasm Abd pain likely related to constipation with air traping after the procedure and her underlying gastroparesis KUB: Suggestive of Constipation Continue Bowel Regimen Appreciate GI Input Tolerated diet Lipase normal Leukocytosis likely due to Budosenide Follow up with GI as outpatient Plan to continue Cipro and flagyl for 3 days post discharge Hypokalemia: Replace and Monitor DVT Px: SCDs Disposition: Plan to discharge home today Subjective Patient is seen and examined at bedside Doing well today Reports nausea earlier today Denies abd pain, vomiting, chest pain, SOB, dizziness Tolerated diet Discussed with GI today Physical Exam Vital Signs (Past 24 Hours): Last Vital Signs Temp 36.6 C 01/12/19 12:46 Pulse 62 01/12/19 12:46 Resp 16 01/12/19 12:46 BP 104/70 01/12/19 12:46 Pulse Ox 91 01/12/19 12:46 Physical Exam: Physical Exam: Vitals signs as noted above General Appearance:Moderately built and nourished, no apparent distress Head: normocephalic, Atraumatic Eyes: normal inspection, EOMI Neck: supple, Trachea midline Respiratory/Chest: Normal breath sounds, CTA Cardiovascular: S1, S2, No murmur Abdomen/GI:Soft, Non tender, Bowel sounds present Extremities/Musculoskelatal:normal inspection, no edema Neurologic/Psych:AAOX3, grossly no focal neurological deficits Skin: normal color, warm Results & Data Laboratory Results Short CBC 01/11/19 01/12/19 Range/Units 22:19 06:20 WBC 15.14 H 15.71 H (4.8-10.8) K/uL Hgb 12.1 11.9 L (12.0-16.0) g/dL Hct 34.6 L 34.5 L (37-47) % Plt Count 314 295 (130-400) K/uL BMP 01/11/19 01/12/19 22:19 06:20 Sodium 142 143 Potassium 3.5 3.2 L Chloride 108 H 111 H Carbon Dioxide 29 28 BUN 19 H 13 Creatinine 0.81 0.57 L Glucose 91 117 H Calcium 8.5 7.9 L Liver Function 01/11/19 01/12/19 Range/Units 22:19 06:20 Total Bilirubin 0.3 0.4 (0.2-1) mg/dl Direct Bilirubin 0.1 (0-0.2) mg/dl AST 22 26 (15-37) U/L ALT 34 37 (12-78) U/L Alkaline Phosphatase 81 73 (45-117) U/L Albumin 3.4 3.0 L (3.4-5.0) gm/dl Urine 01/11/19 Range/Units 23:40 Urine Color Yellow Urine Appearance Cloudy H (Clear) Urine pH 6.0 (4.5-7.5) Ur Specific Elizabeth 1.017 (1.000-1.030) Urine Protein Negative (Negative) Urine Glucose (UA) Negative (Negative) Diagnostic Findings KUB: 1. Nonobstructive bowel gas pattern. 2. Suggested constipation. 3. Postoperative findings as above.
--- NOTE | 2019-01-12 14:33 | Discharge Summary ---
Date of Service January 12, 2019 Admission HPI Per Admitting Provider 48-year-old female with a past medical history hereditary spherocytosis, gastroparesis, colitis, C2-3 degenerative disc disease, colitis, pancreatic cyst, chronic pain syndrome, who presents to our ER with severe epigastric abdominal pain. She had an ERCP on 329 secondary to abnormal LFTs and suspected sphincter of Oddi dysfunction. She had a Botox injection to the pylorus, a pancreatic duct stent in the common bile duct stent placed by Dr. Marroquin. In the ER they were unable to maintain her pain control so they asked us to place the patient under observation and continued care. She originally called Dr. Marroquin and he told her to report to the emergency room. She was found a white blood cell count of 15 and mild dehydration. Admission Exam Per Admitting Provider Physical Exam Gen-AAO x 3, mild distress, Afebrile Head-NCAT, EOMI, PERRLA, Anicteric Sclera, No Posterior Pharyngeal Erythema Neck-Supple, No JVD, No Thyromegaly, No Masses, No LAD, No Bruits Lungs-Clear to Auscultation Bilaterally, No Rales, No Rhonchi, No Wheezing, No Crepitus Chest-No S4, +S1, +S2, No S3, No Murmurs, No Rubs, No Gallops, No Ectopy Abdomen-Soft, Bowel Sounds Present, Tender, Non Distended, No Hepatomegaly, No Splenomegaly, No Palpable Masses, No Rebound, No Rigidity, No Guarding Musculoskeletal-Full Range of Motion Bilaterally, No CVAT Extremities-No Cyanosis, No Clubbing, No Edema Nuero-Cranial Nerves II-XII grossly intact, Motor WNL, DTRs WNL, Strength WNL, No Focal Psych-Normal Mood Principal Diagnosis Discharge Information Discharge Diagnosis Abdominal pain Constipation Discharge Goals Decrease discomfort,Improve disease control, Improve function Discharge Activity Limitations Resume your previous activity Discharge Data Allergies Allergy/AdvReac Type Severity Reaction Status Date / Time erythromycin base Allergy hives Verified 01/11/19 22:48 latex Allergy blisters Verified 01/11/19 22:48 Penicillins Allergy breathing Verified 01/11/19 22:48 issues sulfamethoxazole Allergy facial Verified 01/11/19 22:48 edema Consultations 01/12/19 01:43 ED Decision to Admit Stat 01/12/19 04:02 Consult Gastroenterology Routine Procedures Performed KUB: 1. Nonobstructive bowel gas pattern. 2. Suggested constipation. 3. Postoperative findings as above. Hospital Course (1) Epigastric abdominal pain: Abdominal pain H/O Gastroparesis Recent ERCP on 01/10 with stent to the common bile duct and stent the pancreatic duct, Botox injection to the pylorus for duodenal spasm Abd pain likely related to constipation with air traping after the procedure and her underlying gastroparesis KUB: Suggestive of Constipation Continue Bowel Regimen Appreciate GI Input Tolerated diet Lipase normal Leukocytosis likely due to Budosenide Follow up with GI as outpatient Plan to continue Cipro and flagyl for 3 days post discharge Hypokalemia: Replace and Monitor DVT Px: SCDs Disposition: Plan to discharge home today Total Time Total Time Spent Total Time Spent (In Minutes): 34 minutes Total Time Includes: Examination of the Patient, Discharge Planning, Medication Reconciliation, Communication With Other Providers and Other Discharge Plan Discharge Items Patient Disposition: Home - Self-Care Reason For Visit: EPIGASTRIC ABD PAIN Discharge Diagnosis: Abdominal pain Constipation Discharge Goals: Decrease discomfort, Improve disease control and Improve fun ction Activity: Resume your previous activity Exercise/Sports: Gradually increase as tolerated Non-emergency contact: Primary Care Provider and Countersinker Call non-emergency contact if: you have any medication questions, your symptoms worsen, your pain is not controlled, your pain is worsening, your pain is unusual for you, your pain is concerning for you and you have a fever Follow-up/Referrals: Heidi Castle MD [Primary Care Provider] - Diet: Regular Diet Texture: Dental soft (bite-sized) Addtl Provider Instructions: Follow up with your PCP Dr.Tracy Castle in 1 week Follow up with your Countersinker as advised Complete the antibiotic course as prescribed Seek immediate medical attention if your symptoms reoccur or worsen Urine Culture results are pending at the time of discharge--Please follow up with your doctor for results Prescriptions: New ciprofloxacin HCl [Cipro] 500 mg tablet 500 mg PO BID 3 Days Qty: 6 RF: 0 metronidazole [Flagyl] 500 mg tablet 500 mg PO Q8H 3 Days Qty: 9 RF: 0 polyethylene glycol 3350 [Miralax] 17 gram Powder In Packet 17 g PO DAILY PRN (Reason: constipation) 14 Days Qty: 14 RF: 0 Continued multivitamin Tablet 1 tab PO QDD RF: 0 budesonide 3 mg Capsule,Delayed,Extend.Release 3 mg PO BID RF: 0 oxycodone-acetaminophen [Percocet] 5-325 mg tablet 1 tab PO Q6 PRN (Reason: Pain) RF: 0 ondansetron 4 mg tablet,disintegrating 4 mg translingual Q8 PRN (Reason: Nausea) RF: 0 Stand-Alone Forms: [facility], [facility] Discharge Orders: Discharge Order (Routine); Ordered 01/12/19 Ordered By: Steven Deng Admission Data Admit Date/Time: 01/12/19 01:58 Attending Provider: Steven Deng Admit Provider: Juan Cho Primary Care Provider: Heidi Castle Other Providers: Juan Cho ; Vivian Marroquin Service: Surgical Services Other Interventions: Discharge Summary Assessment (RN) Last Done: 01/12/19 12:46 Pending Studies at Discharge: Yes Studies:: Urine Culture DC Date/Time DO NOT enter until pt leaves facility: 01/12/19 15:03
== END 2019-01-12 15:03 | disposition home or self-care (01) ==
LOC: ED 21:39 → 3W 21:39

== ENCOUNTER 2020-10-11 23:31 | Inpatient (IN) ==
[2020-10-11] MEDS ORDERED: SODIUM CHLORIDE 0.9% 1000ML 1,000 ML IV ONE (23:58)
[2020-10-11] MEDS ORDERED: HYDROmorphone INJ 1 MG/ML SYRINGE IV STA (23:58)
[2020-10-11] MEDS ORDERED: ONDANSETRON INJ 2 MG/ML 2 ML VIAL IV STA (23:58)
--- NOTE | 2020-10-12 00:03 | Emergency Department Note ---
Impression & Plan Acute pancreatitis after endoscopic retrograde cholangiopancreatography (ERCP) ED Provider Note Name: DEX PHILLIPS Age: 50 Sex: F Arrives Via: Walk-In Informant: Patient ED Provider: Jeancarlos Morales MD Chief Complaint: Epigastric pain Impression: Acute Pancreatitis after ERCP Medical Decision Makin yr old pleasant female with long history of abdominal issues including Gastroparesis, Colitis, Pancreatic cyst, Hereditary spherocytosis, Sphincter James who underwent ERCP earlier and now has had rapidly worsening epigastric/LUQ abdominal pain. She does not have peritonitis on exam, vitals are stable, and pain is controlled with IV narcotics. No fevers nor abdominal distension. Labs with mild wbc elevation which is essentially baseline for her. Her Lipase is severely elevated consistent with ERCP induced pancreatitis. Given relatively benign abdominal exam and looking well I will defer imaging to hospitalist. Prior Medical Record and Triage/Nursing Notes reviewed by Me Additional history obtained from chart Differentials:Pancreatitis, Ischemia, Obstruction, Perforation, Aortic issue, Biliary issue, renal colic, amongst other pathologies. Vital Signs: reviewed and remarkable for no significant abnormalities Interventions: Saline lock, dilaudid 1mg IV x 2, dilaudid 0.5mg IV, nss bolus, zofran 4mg IV x 2 Labs:Reviewed and remarkable for elevated lipase Imaging:X ray results are stated below per my interpretation: Chest: 1 view: No infiltrate, no effusion, normal cardiac border. No clear evidence free air under diaphragm Consults:Dr Aubrey Cheng Hospitalist Plan: Disposition:Hospitalization. Condition: Good History of Present Illness:50 yr old female with extensive abdominal history including Pancreatitis, Splenectomy, Irina Fundoplication, Colitis, Sphincter James issues amongst others arrives for evaluation of abdominal pain. Patient had an ERCP this morning. Since than gradually worsening epigastric pain. Radiates to LUQ. Associated with nausea and some diarrhea. Notes pain is severe and cramping in nature. Similar though not identical to previous pancreatitis episodes. Denies trauma, injuries, falls. She has not been able to take any medications for this. Nothing makes better nor worse. ROS: See above HPI for pertinent positives & negatives. A total of 10 systems reviewed and were otherwise negative. Past Medical History:Gastroparesis, Colitis, Pancreatic cyst, Hereditary spherocytosis, Sphincter James issues Past Surgical History:ERCP, Splenectomy, cholecystectomy, Irina fundoplication, endometrial ablation. Family History:Diabetes Social History:Lives with spouse, non smoker, no drugs, safe at home Home Medications:Budesonide, Multivitamin, Zofran Allergies:Erythromycin, Latex, Penicillins, Sulfamethoxazole. Vitals:Blood Pressure: 154/87, Pulse 77, RR 22, T 36.9C, O2 99% on RA Physical Exam: GENERAL: Patient is very uncomfortable appearing and in moderate distress. EYES: No scleral icterus, unremarkable pupils. ENT: Mucous membranes moist, no nasal congestion. NECK: No masses appreciated, nomeningismus, trachea is midline. RESPIRATORY: No dyspnea. Clear to auscultation and equal bilaterally. No wheeze, no rhonchi. CARDIOVASCULAR: Regular rate and rhythm.No murmurs, rubs, gallops appreciated. GASTROINTESTINAL: Diffuse upper abdominal TTP otherwise abdomen soft, no peritonitis.Bowel sounds positive.No masses appreciated. BACK: No midline tenderness, no CVA tenderness EXTREMITIES: Normal motion all extremities, no cyanosis, no edema. NEUROLOGIC: Alert and oriented, no acute motor or sensory deficits, no focal weakness, cranial nerves grossly intact. SKIN: No rash, no jaundice, no diaphoresis. PSYCH: Appropriate GCS: 15 ED Course: Times/Reassessments: Waxing and waning pain requiring repeat narcotics periodically, agreeable to hospitalization Jeancarlos Morales MD Past Med/Surg History Medical History (Updated 10/12/20 @ 03:41 by Jeancarlos Morales MD) Colitis Gastroparesis Hereditary spherocytosis Pancreatic cyst Spleen absent Surgical History History of bladder surgery History of cholecystectomy History of endometrial ablation History of ERCP History of Irina fundoplication Hx of splenectomy Family History Brother Family history of diabetes mellitus Brother Family history of diabetes mellitus Grandmother (Paternal) Family history of diabetes mellitus Social History Smoking Status: Never smoker Hx Alcohol Use: Yes Alcohol type: beer and wine Hx Substance Use: No Preferred Language: Argentine Communication Ability: Effective Visual Impairment: Limited Hearing Ability: Normal Shank Stitcher Required: No Beliefs That Will Affect Care: None marital status: Current Living Situation: Family current occupational status: employed Feels Safe at Home: Yes Assistive Devices: Glasses Allergies Allergies Allergy/AdvReac Type Severity Reaction Status Date / Time erythromycin base Allergy hives Verified 10/12/20 01:56 latex Allergy blisters Verified 10/12/20 01:56 Penicillins Allergy breathing Verified 10/12/20 01:56 issues sulfamethoxazole Allergy facial Verified 10/12/20 01:56 edema Home Meds Home Medications Medication Instructions Recorded Confirmed multivitamin 1 tab PO QDD 12/16/18 10/12/20 dicyclomine 10 mg PO BID 10/12/20 10/12/20 Results & Data (ED) Vital Signs Vital Signs - 24 hr 10/11/20 23:41 10/12/20 01:00 10/12/20 03:00 Temperature 36.9 C Temperature Source Temporal Artery Scan Pulse Rate 77 Pulse Rate [Right Finger] 76 89 Respiratory Rate 22 16 16 Respiratory Effort / Characteristics Non-Labored Spontaneous Respiratory Depth Normal Normal Normal Blood Pressure 154/87 H Blood Pressure [Right Arm] 108/68 121/67 Blood Pressure Mean 109 Blood Pressure Mean [Right Arm] 81 85 Blood Pressure Position [Right Arm] Lying Lying Pulse Oximetry 99 99 96 Oxygen Delivery Method Room Air Room Air Room Air Sepsis New/Unexplained Change in Mental Status N/A Sepsis Action Taken by Nursing No Action Required Laboratory Data Result diagrams: 10/12/20 00:31 10/12/20 00:31 Lab Results 10/12/20 10/12/20 10/12/20 Range/Units 00:31 00:31 00:35 WBC 17.26 H (4.8-10.8) K/uL RBC 4.29 (4.2-5.4) M/uL Hgb 14.0 (12.0-16.0) g/dL Hct 39.9 (37-47) % MCV 93.0 (80-100) fL MCH 32.6 (25-34) pg MCHC 35.1 (32-36) g/dL RDW Std Deviation 43.3 (36.4-46.3) fL RDW Coeff of Marshall 12.7 (11.5-14.5) % Plt Count 326 (130-400) K/uL MPV 9.8 (7.4-10.4) fL Immature Gran % (Auto) 0.1 % Neut % (Auto) 81.5 % Lymph % (Auto) 12.3 % [place] % (Auto) 6.0 % Eos % (Auto) 0.0 % Baso % (Auto) 0.1 % Neut # (Auto) 14.06 H (1.4-6.5) K/uL Lymph # (Auto) 2.13 (1.2-3.4) K/uL [place] # (Auto) 1.03 H (0.11-0.59) K/uL Eos # (Auto) 0.00 (0-0.5) K/uL Baso # (Auto) 0.02 (0-0.2) K/uL Immature Gran # (Auto) 0.02 (0.00-0.02) K/uL Sodium 142 (136-145) mmol/L Potassium 4.1 (3.5-5.1) mmol/L Chloride 110 H (98-107) mmol/L Carbon Dioxide 23 (21-32) mmol/L Anion Gap 9.0 (3-11) BUN 13 (7-18) mg/dl Creatinine 0.81 (0.6-1.2) mg/dl Est Cr Clr Drug Dosing 62.0 ml/min Est GFR ( Amer) 97.5 Est GFR (Non-Af Amer) 84.1 BUN/Creatinine Ratio 15.7 (10-20) Glucose 133 H (70-99) mg/dl Calcium 9.0 (8.5-10.1) mg/dl Total Bilirubin 0.6 (0.2-1) mg/dl Direct Bilirubin 0.1 (0-0.2) mg/dl AST 30 (15-37) U/L ALT 30 (12-78) U/L Alkaline Phosphatase 111 (45-117) U/L Total Protein 7.8 (6.4-8.2) gm/dl Albumin 4.1 (3.4-5.0) gm/dl Lipase 24779 H (73-393) U/L Urine Color Dark Yellow Urine Appearance Turbid A (Clear) Urine pH 5.0 (4.5-7.5) Ur Specific [place] 1.022 (1.000-1.030) Urine Protein Trace H (Negative) Urine Glucose (UA) Trace H (Negative) Urine Ketones Trace H (Negative) Urine Blood 3+ H (Negative) Urine Nitrite Negative (Negative) Urine Bilirubin Negative (Negative) Urine Urobilinogen Negative (Negative) Ur Leukocyte Esterase 2+ H (Negative) Urine WBC (Auto) >30 H (0-5) /hpf Urine RBC (Auto) 10-30 H (0-4) /hpf U Hyaline Cast (Auto) 0 (0-5) /lpf U Epithel Cells (Auto) >30 H (0-5) /lpf Urine Bacteria (Auto) Negative (Negative) Urine Crystals Not Reportable Calcium Oxalate Crystal Present A (None Prsent) Urine Mucus Present A (None Prsent) Urine Test (Negative) SARS-CoV-2 Ag (Rapid) (Negative) 10/12/20 10/12/20 Range/Units 00:35 02:33 WBC (4.8-10.8) K/uL RBC (4.2-5.4) M/uL Hgb (12.0-16.0) g/dL Hct (37-47) % MCV (80-100) fL MCH (25-34) pg MCHC (32-36) g/dL RDW Std Deviation (36.4-46.3) fL RDW Coeff of Marshall (11.5-14.5) % Plt Count (130-400) K/uL MPV (7.4-10.4) fL Immature Gran % (Auto) % Neut % (Auto) % Lymph % (Auto) % [place] % (Auto) % Eos % (Auto) % Baso % (Auto) % Neut # (Auto) (1.4-6.5) K/uL Lymph # (Auto) (1.2-3.4) K/uL [place] # (Auto) (0.11-0.59) K/uL Eos # (Auto) (0-0.5) K/uL Baso # (Auto) (0-0.2) K/uL Immature Gran # (Auto) (0.00-0.02) K/uL Sodium (136-145) mmol/L Potassium (3.5-5.1) mmol/L Chloride (98-107) mmol/L Carbon Dioxide (21-32) mmol/L Anion Gap (3-11) BUN (7-18) mg/dl Creatinine (0.6-1.2) mg/dl Est Cr Clr Drug Dosing ml/min Est GFR ( Amer) Est GFR (Non-Af Amer) BUN/Creatinine Ratio (10-20) Glucose (70-99) mg/dl Calcium (8.5-10.1) mg/dl Total Bilirubin (0.2-1) mg/dl Direct Bilirubin (0-0.2) mg/dl AST (15-37) U/L ALT (12-78) U/L Alkaline Phosphatase (45-117) U/L Total Protein (6.4-8.2) gm/dl Albumin (3.4-5.0) gm/dl Lipase (73-393) U/L Urine Color Urine Appearance (Clear) Urine pH (4.5-7.5) Ur Specific [place] (1.000-1.030) Urine Protein (Negative) Urine Glucose (UA) (Negative) Urine Ketones (Negative) Urine Blood (Negative) Urine Nitrite (Negative) Urine Bilirubin (Negative) Urine Urobilinogen (Negative) Ur Leukocyte Esterase (Negative) Urine WBC (Auto) (0-5) /hpf Urine RBC (Auto) (0-4) /hpf U Hyaline Cast (Auto) (0-5) /lpf U Epithel Cells (Auto) (0-5) /lpf Urine Bacteria (Auto) (Negative) Urine Crystals Calcium Oxalate Crystal (None Prsent) Urine Mucus (None Prsent) Urine Test Negative (Negative) SARS-CoV-2 Ag (Rapid) Negative (Negative) Administered Medications Discontinued Medications Hydromorphone HCl (Hydromorphone Inj 1 Mg/Ml Syringe) 1 mg IV NOW STA Stop: 10/11/20 23:59 Last Admin: 10/12/20 00:30 Dose: 1 mg Documented by: [id number] Hydromorphone HCl (Hydromorphone Inj 0.5 Mg/0.5 Ml Syr) 0.5 mg IV NOW STA Stop: 10/12/20 01:06 Last Admin: 10/12/20 01:21 Dose: 0.5 mg Documented by: [id number] Hydromorphone HCl (Hydromorphone Inj 1 Mg/Ml Syringe) 1 mg IV NOW STA Stop: 10/12/20 01:38 Last Admin: 10/12/20 01:46 Dose: 1 mg Documented by: [id number] Sodium Chloride (Nss 1000ml) 1,000 mls @ 999 mls/hr IV .Q1H1M ONE Stop: 10/12/20 00:58 Last Infusion: 10/12/20 03:05 Dose: 0 mls/hr Documented by: [id number] Admin: 10/12/20 00:30 Dose: 999 mls/hr Documented by: [id number] Ondansetron HCl (Ondansetron Inj 2 Mg/Ml 2 Ml Vial) 4 mg IV NOW STA Stop: 10/11/20 23:59 Last Admin: 10/12/20 00:30 Dose: 4 mg Documented by: [id number] Ondansetron HCl (Ondansetron Inj 2 Mg/Ml 2 Ml Vial) 4 mg IV NOW STA Stop: 10/12/20 02:05 Last Admin: 10/12/20 02:38 Dose: 4 mg Documented by: [id number] Discharge Plan Visit Data Chief Complaint: Abdominal Pain Stated Complaint: ABD PAIN ED Provider: Jeancarlos Morales Discharge Problem: Acute pancreatitis after endoscopic retrograde cholangiopancreatography (ERCP) Forms Stand Alone Forms: [facility] Prescriptions Prescriptions: No Action multivitamin Tablet 1 tab PO QDD RF: 0 dicyclomine 10 mg capsule 10 mg PO BID RF: 0 Referrals Referrals: Heidi Castle MD [Primary Care Provider] -
[2020-10-12 00:45] LABS: Basophils # (auto) 0.02 K/uL (0-0.2); Basophils % (auto) 0.1 %; Hematocrit (blood only) 39.9 % (37-47); Immature Granulocytes # (auto) 0.02 K/uL (0.00-0.02); Immature Granulocytes % (auto) 0.1 %; Lymphocytes # (auto) 2.13 K/uL (1.2-3.4); Lymphocytes % (auto) 12.3 %; Mean Corpuscular Hemoglobin 32.6 pg (25-34); Mean Corpuscular Hgb Conc 35.1 g/dL (32-36); Mean Platelet Volume 9.8 fL (7.4-10.4); Monocytes # (auto) 1.03 K/uL (0.11-0.59); Neutrophils # (auto) 14.06 K/uL (1.4-6.5); Neutrophils % (auto) 81.5 %; Platelet Count 326 K/uL (130-400); RDW Coefficient of Variation 12.7 % (11.5-14.5); RDW Standard Deviation 43.3 fL (36.4-46.3); Red Blood Count 4.29 M/uL (4.2-5.4); White Blood Count 17.26 K/uL (4.8-10.8)
[2020-10-12 00:49] LABS: Pregnancy Test, Urine Negative (Negative)
[2020-10-12 00:51] LABS: Appearance Urine Turbid (Clear); Bacteria Urine Automated Negative (Negative); Bilirubin Urine Negative (Negative); Blood Urine 3+ (Negative); Color Urine Dark Yellow; Epithelial Cell Urine Auto >30 /lpf (0-5); Glucose Urine UA Trace (Negative); Ketones Urine Trace (Negative); Leukocyte Esterase Urine 2+ (Negative); Nitrite Urine Negative (Negative); Protein Urine Trace (Negative); Specific Gravity Urine 1.022 (1.000-1.030); Urobilinogen Urine Negative (Negative); WBC Urine Automated >30 /hpf (0-5)
[2020-10-12 01:01] LABS: Albumin Level 4.1 gm/dl (3.4-5.0); BUN Creatinine Ratio 15.7 (10-20); Bilirubin Direct 0.1 mg/dl (0-0.2); Est GFR (African American) 97.5; Est GFR (Non-African American) 84.1; Potassium 4.1 mmol/L (3.5-5.1)
[2020-10-12 01:04] LABS: Bilirubin,Total 0.6 mg/dl (0.2-1); Total Protein 7.8 gm/dl (6.4-8.2)
[2020-10-12] MEDS ORDERED: HYDROmorphone INJ 0.5 MG/0.5 ML SYR IV STA (01:05)
[2020-10-12 01:18] LABS: Calcium Oxalate Crystals Urine Present (None Prsent); Cast Urine Automated 0 /lpf (0-5); Mucus Urine Present (None Prsent)
[2020-10-12] MEDS ORDERED: HYDROmorphone INJ 1 MG/ML SYRINGE IV STA (01:37)
[2020-10-12] MEDS ORDERED: ONDANSETRON INJ 2 MG/ML 2 ML VIAL IV STA ×3 (02:04→11:03)
--- NOTE | 2020-10-12 04:27 | History and Physical Report ---
DATE OF ADMISSION: 10/12/2020 CHIEF COMPLAINT: Abdominal pain. HISTORY OF PRESENT ILLNESS: This 50-year-old female with past medical history significant for spasms of sphincter of Oddi, history of pleural effusion, history of gastroparesis, GERD with esophagitis, eosinophilic esophagitis, dumping syndrome, chronic diarrhea, eosinophilic colitis, epigastric pain, hereditary spherocytosis, generalized anxiety disorder, status post splenectomy presents with abdominal pain. The patient was status post ERCP today and found to have prior biliary sphincterotomy appeared stenosed, and causing papillary stenosis, it was treated with balloon dilatation and sphincteroplasty, advised to get a clear liquid diet for today and the patient says she had some clear liquid diet in evening around 6:00pm, after that she started having severe abdominal pain, 10/10 in severity, and dry heaves, which prompted her to come to the ER. In the ER, lipase 51,000. Received several doses of Dilaudid and currently pain is under control. Resting comfortably and hemodynamically stable. Denies any chest pain, no shortness of breath, no cough, no fever, no chills, no headache, no blurred vision, no earache, no runny nose, no sore throat. Normal bowel and bladder movements. She says she has diarrhea because of eosinophilic colitis, had diarrhea for last 4 days, but that is slightly improved now. ALLERGIES: ERYTHROMYCIN BASE, LATEX, PENICILLIN, SULFAMETHOXAZOLE. PAST MEDICAL HISTORY: As mentioned above. PAST SURGICAL HISTORY: ERCP, EGD with endoscopic ultrasound, status post laparoscopic Irina fundoplication, ligation of oviduct, removal of the spleen, G-POEM done at [facility] for gastroparesis, cholecystectomy. MEDICATIONS: Bentyl 10 mg p.o. b.i.d., multivitamin 1 tablet p.o. daily. FAMILY HISTORY: Significant for brother had diabetes type 1. Father has heart disease. Mother had hypertension and hypercholesterolemia. SOCIAL HISTORY: . No smoking. Alcohol occasional. No drug use. REVIEW OF SYMPTOMS: As per HPI. Rest of the review of symptoms negative. PHYSICAL EXAMINATION: GENERAL: The patient is of moderate build, not in acute distress. VITAL SIGNS: Temperature 36.9, pulse 77, respiratory, 22, blood pressure 154/87, oxygen 99% on room air. HEENT: Pupils equal, round, reactive to light. Oral mucosa moist. NECK: No neck masses seen, supple. CARDIOVASCULAR: S1, S2 heard, regular rate and rhythm, no murmur, no gallop. RESPIRATORY SYSTEM: Normal AP diameter. No accessory muscle use. No wheezing, no crackles. ABDOMEN: Soft, bowel sounds present, nontender. No distention, no guarding, no rigidity. CENTRAL NERVOUS SYSTEM: Cranial nerves II-XII grossly intact. Nonfocal. EXTREMITIES: No edema, no erythema. LABORATORY DATA: WBC 17.3, hemoglobin 14, hematocrit 39.9, platelets 326. Sodium 142, potassium 4.1, chloride 110, bicarbonate 23, BUN 13, creatinine 0.8, serum glucose 133, calcium 9. Total bilirubin 0.6, direct bilirubin 0.1, AST 30, ALT 30, alkaline phosphatase 111, lipase 51,695. Urinalysis positive for leukocyte esterase. SARS-CoV-2 antigen rapid negative. IMAGING: Chest x-ray, no acute findings seen. ASSESSMENT AND PLAN: This is a 50-year-old female who is status post ERCP today presents with acute pancreatitis. 1. Acute pancreatitis post-ERCP, lipase elevation to 51,000, will keep her n.p.o., aggressive IV LR 200 mL per hour, IV Dilaudid p.r.n., IV antiemetics p.r.n. Consult GI in a.m. Imaging studies as per GI. 2. Possible urinary tract infection. We will follow the cultures. Place her on Rocephin. 3. History of gastroparesis, status post G-POEM by Matthias Biswas, history of dumping syndrome, eosinophilic colitis. Follow up with GI. 4. Deep venous thrombosis prophylaxis, sequential compression devices. DISPOSITION: Closely monitor in the medical floor. Level 1 full code. MTDD
[2020-10-12] MEDS: LACTATED RINGER'S 1,000 ML IV SCH ×4 (05:03→19:31)
[2020-10-12] MEDS: ONDANSETRON INJ 2 MG/ML 2 ML VIAL IV PRN ×2 (06:07→19:31)
[2020-10-12] MEDS: HYDROmorphone INJ 0.5 MG/0.5 ML SYR IV PRN ×3 (06:07→19:32)
--- NOTE | 2020-10-12 07:52 | Gastrointestinal Consultation ---
Date of Consultation October 12, 2020 Assessment & Plan (1) Acute pancreatitis after endoscopic retrograde cholangiopancreatography (ERCP): Mild pancreatitis with normal BUN and no SIRS. Abdominal pain resolved already. Continue IV Fluids. Trial of clear liquids later today at dinner time, if tolerated well then advance tomorrow. PRN antiemetics. 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 She did have Hx of post ERCP pancreatitis in the past. She feels much better now, pain resolved, has nausea but no vomiting. No other symptoms. She had Hx of Achalasia s/p Hellers myotomy with fundoplication, Hx of gastroparesis s/p G-POEM. Allergies Allergy/AdvReac Type Severity Reaction Status Date / Time erythromycin base Allergy hives Verified 10/12/20 01:56 latex Allergy blisters Verified 10/12/20 01:56 Penicillins Allergy breathing Verified 10/12/20 01:56 issues sulfamethoxazole Allergy facial Verified 10/12/20 01:56 edema Home Medications Medication Instructions Recorded Confirmed Type multivitamin 1 tab PO QDD 12/16/18 10/12/20 History dicyclomine 10 mg PO BID 10/12/20 10/12/20 History Patient History Medical History (Updated 10/12/20 @ 03:41 by Jeancarlos Morales MD) Colitis Gastroparesis Hereditary spherocytosis Pancreatic cyst Spleen absent Surgical History History of bladder surgery History of cholecystectomy History of endometrial ablation History of ERCP History of Irina fundoplication Hx of splenectomy Family History Brother Family history of diabetes mellitus Brother Family history of diabetes mellitus Grandmother (Paternal) Family history of diabetes mellitus Social History Smoking Status: Never smoker Hx Alcohol Use: No Hx Substance Use: No Preferred Language: Nigerian Communication Ability: Effective Visual Impairment: Limited Hearing Ability: Normal [employer] Science [employer] Required: No Beliefs That Will Affect Care: None marital status: Current Living Situation: Spouse current occupational status: employed Other Information That Helps Us Care for You: No Feels Safe at Home: Yes Safety Concerns: Feels Safe At This Time Assistive Devices: None Review of Systems Constitutional: no fever, no chills, no fatigue and no weight loss Eyes: no eye pain and no worsening vision Ear, Nose, Mouth, Throat: no tinnitus, no dizziness, no nasal discharge and no epistaxis Respiratory: no cough, no dyspnea, no dyspnea on exertion and no wheezing Cardiovascular: no chest pain, no orthopnea, no palpitations and no edema Gastrointestinal: as per Subjective / HPI Genitourinary: no dysuria, no urinary frequency, no urinary incontinence and no hematuria Musculoskeletal: no stiffness and no myalgia Neurologic: no localized weakness, no paralysis, no tremor(s) and no headache(s) Endocrine: no polydipsia and no polyuria Hematologic / Lymphatic: no easy bleeding and no night sweats Physical Exam Constitutional: + well hydrated, cooperative and comfortable Eyes: PERRL, conjunctivae normal, anicteric sclerae ENMT: external ear and nose normal, oropharynx normal Neck: normal visual inspection and trachea midline Respiratory: normal respiratory effort, lungs clear to auscultation Auscultation: no wheezes Cardiovascular: RRR, no murmur, no edema Gastrointestinal (Abdomen): normal bowel sounds, soft, nontender, no hepatosplenomegaly Musculoskeletal: no cyanosis or clubbing, extremities motor strength 5/5 Skin: no rashes, warm and dry Neurologic: awake; no focal motor deficits Motor/Sensory: no tremor Results & Data ([facility]) Vital Signs (Past 12 Hours) Vital Signs Temp Pulse Pulse Resp BP BP BP 10/12/20 06:41 36.4 C L 72 14 109/72 10/12/20 04:47 36.4 C L 67 18 132/71 10/12/20 03:46 69 16 120/60 10/12/20 03:00 89 16 121/67 10/12/20 01:00 76 16 108/68 10/11/20 23:41 36.9 C 77 22 154/87 H Pulse Ox 10/12/20 06:41 94 10/12/20 04:47 96 10/12/20 03:46 97 10/12/20 03:00 96 10/12/20 01:00 99 10/11/20 23:41 99 Laboratory Results Laboratory Results - last 24 hr 10/12/20 10/12/20 10/12/20 00:31 00:31 00:35 WBC 17.26 H RBC 4.29 Hgb 14.0 Hct 39.9 MCV 93.0 MCH 32.6 MCHC 35.1 RDW Std Deviation 43.3 RDW Coeff of [place] 12.7 Plt Count 326 MPV 9.8 Immature Gran % (Auto) 0.1 Neut % (Auto) 81.5 Lymph % (Auto) 12.3 [place] % (Auto) 6.0 Eos % (Auto) 0.0 Baso % (Auto) 0.1 Neut # (Auto) 14.06 H Lymph # (Auto) 2.13 [place] # (Auto) 1.03 H Eos # (Auto) 0.00 Baso # (Auto) 0.02 Immature Gran # (Auto) 0.02 Sodium 142 Potassium 4.1 Chloride 110 H Carbon Dioxide 23 Anion Gap 9.0 BUN 13 Creatinine 0.81 Est Cr Clr Drug Dosing 62.0 Est GFR ( Amer) 97.5 Est GFR (Non-Af Amer) 84.1 BUN/Creatinine Ratio 15.7 Glucose 133 H Calcium 9.0 Total Bilirubin 0.6 Direct Bilirubin 0.1 AST 30 ALT 30 Alkaline Phosphatase 111 Total Protein 7.8 Albumin 4.1 Lipase 87085 H Urine Color Dark Yellow Urine Appearance Turbid A Urine pH 5.0 Ur Specific [place] 1.022 Urine Protein Trace H Urine Glucose (UA) Trace H Urine Ketones Trace H Urine Blood 3+ H Urine Nitrite Negative Urine Bilirubin Negative Urine Urobilinogen Negative Ur Leukocyte Esterase 2+ H Urine WBC (Auto) >30 H Urine RBC (Auto) 10-30 H U Hyaline Cast (Auto) 0 U Epithel Cells (Auto) >30 H Urine Bacteria (Auto) Negative Urine Crystals Not Reportable Calcium Oxalate Crystal Present A Urine Mucus Present A Urine Test SARS-CoV-2 Ag (Rapid) 10/12/20 10/12/20 00:35 02:33 WBC RBC Hgb Hct MCV MCH MCHC RDW Std Deviation RDW Coeff of [place] Plt Count MPV Immature Gran % (Auto) Neut % (Auto) Lymph % (Auto) [place] % (Auto) Eos % (Auto) Baso % (Auto) Neut # (Auto) Lymph # (Auto) [place] # (Auto) Eos # (Auto) Baso # (Auto) Immature Gran # (Auto) Sodium Potassium Chloride Carbon Dioxide Anion Gap BUN Creatinine Est Cr Clr Drug Dosing Est GFR ( Amer) Est GFR (Non-Af Amer) BUN/Creatinine Ratio Glucose Calcium Total Bilirubin Direct Bilirubin AST ALT Alkaline Phosphatase Total Protein Albumin Lipase Urine Color Urine Appearance Urine pH Ur Specific [place] Urine Protein Urine Glucose (UA) Urine Ketones Urine Blood Urine Nitrite Urine Bilirubin Urine Urobilinogen Ur Leukocyte Esterase Urine WBC (Auto) Urine RBC (Auto) U Hyaline Cast (Auto) U Epithel Cells (Auto) Urine Bacteria (Auto) Urine Crystals Calcium Oxalate Crystal Urine Mucus Urine Test Negative SARS-CoV-2 Ag (Rapid) Negative
--- NOTE | 2020-10-12 07:58 | XRay Report ---
SINGLE VIEW CHEST CLINICAL HISTORY: Generalized abdominal pain status post ERCP. FINDINGS: An AP, portable, upright chest radiograph is obtained. No prior studies are available for c omparison at the time of dictation. The cardiomediastinal silhouette is unremarkable. The lungs and pleural spaces are clear. No pneumothorax is seen. The bony thorax is grossly intact. No intraperiton eal free air is seen below the diaphragm. IMPRESSION: No active disease in the chest. ACT 112: Negative or not required by law. Electronically signed by: Alfie Mtz M.D. 10/12/2020 7:57 AM
[2020-10-12] MEDS: DICYCLOMINE HCL 10 MG CAP PO SCH ×2 (09:14→21:10)
[2020-10-12] MEDS: CIPROFLOXACIN / D5W 400 MG/200 ML BAG IV SCH ×2 (09:14→19:31)
[2020-10-12] MEDS: FAMOTIDINE 20 MG in SYRINGE 3 ML IV SCH ×2 (09:14→21:10)
[2020-10-12 09:30] LABS: Basophils # (auto) 0.02 K/uL (0-0.2); Basophils % (auto) 0.1 %; Hematocrit (blood only) 35.9 % (37-47); Hemoglobin 12.6 g/dL (12.0-16.0); Immature Granulocytes # (auto) 0.04 K/uL (0.00-0.02); Immature Granulocytes % (auto) 0.2 %; Lymphocytes % (auto) 7.6 %; Mean Corpuscular Hemoglobin 33.1 pg (25-34); Mean Corpuscular Hgb Conc 35.1 g/dL (32-36); Mean Corpuscular Volume 94.2 fL (80-100); Mean Platelet Volume 9.8 fL (7.4-10.4); Monocytes % (auto) 3.8 %; Neutrophils # (auto) 16.18 K/uL (1.4-6.5); Neutrophils % (auto) 88.3 %; Platelet Count 309 K/uL (130-400); RDW Coefficient of Variation 12.8 % (11.5-14.5); RDW Standard Deviation 44.1 fL (36.4-46.3); Red Blood Count 3.81 M/uL (4.2-5.4); White Blood Count 18.34 K/uL (4.8-10.8)
[2020-10-12 10:07] LABS: BUN Creatinine Ratio 17.5 (10-20); Calcium 8.8 mg/dl (8.5-10.1); Est GFR (Non-African American) 104.4; Magnesium 1.8 mg/dl (1.8-2.4); Potassium 4.3 mmol/L (3.5-5.1)
--- NOTE | 2020-10-12 12:16 | Hospitalist Progress Note ---
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 Follow up with GI. (5) DVT prophylaxis: SCDs for now Admission and Anticipated Discharge Date Admission Date: October 12, 2020 Subjective Patient seen and examined. Reporting profound nausea. Stated that Zofran is not helping Also reporting abdominal pain Physical Exam Constitutional: + acute distress and + ill appearing Eyes: PERRL, conjunctivae normal, anicteric sclerae ENMT: external ear and nose normal, oropharynx normal Respiratory: normal respiratory effort, lungs clear to auscultation Cardiovascular: RRR, no murmur, no edema Gastrointestinal (Abdomen): Inspection/Auscultation: abdomen normal to inspection and normal bowel sounds; abdomen not distended Percussion/Palpation: + abdomen tender (Mild epigastric) and abdomen soft Musculoskeletal: no cyanosis or clubbing, extremities motor strength 5/5 Neurologic: PERRL, EOMI, accommodation nl, no face palsy, no dysarthria Psychiatric: A+Ox3, euthymic affect Results & Data Results & Data ([facility]) Vital Signs (Past 12 Hours) Vital Signs Temp Pulse Pulse Resp BP BP BP 10/12/20 06:41 36.4 C L 72 14 109/72 10/12/20 04:47 36.4 C L 67 18 132/71 10/12/20 03:46 69 16 120/60 10/12/20 03:00 89 16 121/67 10/12/20 01:00 76 16 108/68 Pulse Ox 10/12/20 06:41 94 10/12/20 04:47 96 10/12/20 03:46 97 10/12/20 03:00 96 10/12/20 01:00 99 Laboratory Results Laboratory Results - last 24 hr 10/12/20 10/12/20 10/12/20 00:31 00:31 00:35 WBC 17.26 H RBC 4.29 Hgb 14.0 Hct 39.9 MCV 93.0 MCH 32.6 MCHC 35.1 RDW Std Deviation 43.3 RDW Coeff of [place] 12.7 Plt Count 326 MPV 9.8 Immature Gran % (Auto) 0.1 Neut % (Auto) 81.5 Lymph % (Auto) 12.3 [place] % (Auto) 6.0 Eos % (Auto) 0.0 Baso % (Auto) 0.1 Neut # (Auto) 14.06 H Lymph # (Auto) 2.13 [place] # (Auto) 1.03 H Eos # (Auto) 0.00 Baso # (Auto) 0.02 Immature Gran # (Auto) 0.02 Sodium 142 Potassium 4.1 Chloride 110 H Carbon Dioxide 23 Anion Gap 9.0 BUN 13 Creatinine 0.81 Est Cr Clr Drug Dosing 62.0 Est GFR ( Amer) 97.5 Est GFR (Non-Af Amer) 84.1 BUN/Creatinine Ratio 15.7 Glucose 133 H Calcium 9.0 Magnesium Total Bilirubin 0.6 Direct Bilirubin 0.1 AST 30 ALT 30 Alkaline Phosphatase 111 Total Protein 7.8 Albumin 4.1 Lipase 24569 H Specimen Hemolysis Urine Color Dark Yellow Urine Appearance Turbid A Urine pH 5.0 Ur Specific [place] 1.022 Urine Protein Trace H Urine Glucose (UA) Trace H Urine Ketones Trace H Urine Blood 3+ H Urine Nitrite Negative Urine Bilirubin Negative Urine Urobilinogen Negative Ur Leukocyte Esterase 2+ H Urine WBC (Auto) >30 H Urine RBC (Auto) 10-30 H U Hyaline Cast (Auto) 0 U Epithel Cells (Auto) >30 H Urine Bacteria (Auto) Negative Urine Crystals Not Reportable Calcium Oxalate Crystal Present A Urine Mucus Present A Urine Test SARS-CoV-2 Ag (Rapid) 10/12/20 10/12/20 10/12/20 00:35 02:33 09:10 WBC RBC Hgb Hct MCV MCH MCHC RDW Std Deviation RDW Coeff of [place] Plt Count MPV Immature Gran % (Auto) Neut % (Auto) Lymph % (Auto) [place] % (Auto) Eos % (Auto) Baso % (Auto) Neut # (Auto) Lymph # (Auto) [place] # (Auto) Eos # (Auto) Baso # (Auto) Immature Gran # (Auto) Sodium Potassium Chloride Carbon Dioxide Anion Gap BUN Creatinine Est Cr Clr Drug Dosing Est GFR ( Amer) Est GFR (Non-Af Amer) BUN/Creatinine Ratio Glucose Calcium Magnesium Total Bilirubin Direct Bilirubin AST ALT Alkaline Phosphatase Total Protein Albumin Lipase 05434 H Specimen Hemolysis Urine Color Urine Appearance Urine pH Ur Specific [place] Urine Protein Urine Glucose (UA) Urine Ketones Urine Blood Urine Nitrite Urine Bilirubin Urine Urobilinogen Ur Leukocyte Esterase Urine WBC (Auto) Urine RBC (Auto) U Hyaline Cast (Auto) U Epithel Cells (Auto) Urine Bacteria (Auto) Urine Crystals Calcium Oxalate Crystal Urine Mucus Urine Test Negative SARS-CoV-2 Ag (Rapid) Negative 10/12/20 10/12/20 09:10 09:10 WBC 18.34 H RBC 3.81 L Hgb 12.6 Hct 35.9 L MCV 94.2 MCH 33.1 MCHC 35.1 RDW Std Deviation 44.1 RDW Coeff of [place] 12.8 Plt Count 309 MPV 9.8 Immature Gran % (Auto) 0.2 Neut % (Auto) 88.3 Lymph % (Auto) 7.6 [place] % (Auto) 3.8 Eos % (Auto) 0.0 Baso % (Auto) 0.1 Neut # (Auto) 16.18 H Lymph # (Auto) 1.40 [place] # (Auto) 0.70 H Eos # (Auto) 0.00 Baso # (Auto) 0.02 Immature Gran # (Auto) 0.04 H Sodium 141 Potassium 4.3 Chloride 107 Carbon Dioxide 28 Anion Gap 6.0 BUN 11 Creatinine 0.62 Est Cr Clr Drug Dosing 81.0 Est GFR ( Amer) 121.0 Est GFR (Non-Af Amer) 104.4 BUN/Creatinine Ratio 17.5 Glucose 124 H Calcium 8.8 Magnesium 1.8 Total Bilirubin Direct Bilirubin AST ALT Alkaline Phosphatase Total Protein Albumin Lipase Specimen Hemolysis Urine Color Urine Appearance Urine pH Ur Specific [place] Urine Protein Urine Glucose (UA) Urine Ketones Urine Blood Urine Nitrite Urine Bilirubin Urine Urobilinogen Ur Leukocyte Esterase Urine WBC (Auto) Urine RBC (Auto) U Hyaline Cast (Auto) U Epithel Cells (Auto) Urine Bacteria (Auto) Urine Crystals Calcium Oxalate Crystal Urine Mucus Urine Test SARS-CoV-2 Ag (Rapid)
[2020-10-12] MEDS ORDERED: PROMETHAZINE HCL 12.5 MG in SODIUM CHLORIDE 0.9% 50 ML IV ONE (12:30)
--- NOTE | 2020-10-12 15:07 | Electrocardiogram Report ---
Test Reason : Blood Pressure : / mmHG Vent. Rate : 080 BPM Atrial Rate : 080 BPM P-R Int : 174 ms QRS Dur : 082 ms QT Int : 386 ms P-R-T Axes : 079 083 076 degrees QTc Int : 445 ms Normal sinus rhythm Normal ECG No previous ECGs available Confirmed by Philippe Myrick ([id number]) on 10/12/2020 3:07:36 PM Referred By: REFERRED SELF Confirmed By:Dion Myrick
[2020-10-12] MEDS: MULTIVITAMIN TAB PO SCH (17:06)
[2020-10-13] MEDS: LACTATED RINGER'S 1,000 ML IV SCH ×4 (00:21→17:24)
[2020-10-13] MEDS: KETOROLAC TROMETHAMINE 15 MG/ML VIAL IV PRN ×3 (00:23→17:18)
[2020-10-13 07:01] LABS: Albumin Globulin Ratio 1.1 (0.9-2); Albumin Level 3.2 gm/dl (3.4-5.0); BUN Creatinine Ratio 9.8 (10-20); Bilirubin,Total 0.6 mg/dl (0.2-1); Calcium 8.3 mg/dl (8.5-10.1); Creatinine Clr Calc Pharmacy 100.4 ml/min; Est GFR (African American) 129.9; Est GFR (Non-African American) 112.1; Globulin 2.9 gm/dl (2.5-4.0); Magnesium 1.6 mg/dl (1.8-2.4); Phosphorus 2.9 mg/dl (2.5-4.9); Potassium 3.4 mmol/L (3.5-5.1); Total Protein 6.1 gm/dl (6.4-8.2)
[2020-10-13] MEDS: CIPROFLOXACIN / D5W 400 MG/200 ML BAG IV SCH ×2 (07:57→20:41)
[2020-10-13] MEDS: FAMOTIDINE 20 MG in SYRINGE 3 ML IV SCH ×2 (09:00→20:42)
[2020-10-13] MEDS: DICYCLOMINE HCL 10 MG CAP PO SCH ×2 (09:00→20:41)
[2020-10-13] MEDS: buPROPion XL 300 MG TABCR PO SCH (09:38)
[2020-10-13] MEDS: MAGNESIUM SULFATE / D5W 1 GM/100 ML BAG IV SCH ×2 (10:26→12:13)
--- NOTE | 2020-10-13 14:56 | Hospitalist Progress Note ---
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 Continue IV Zofran as needed She is on prophylactic Cipro for now (2) History of Irina fundoplication: (3) Gastroparesis: status post G-POEM by [facility], history of dumping syndrome, eosinophilic colitis. Follow up with GI as outpatient. Continue scheduled dicyclomine per home regimen. (4) Mood disorder: Cont Welbutrin per home regimen. Admission MAR was updated after confirming correct medication and dose with her outpatient pharmacist by phone. (5) DVT prophylaxis: SCDs/ambulation, Lovenox Full Code Dispo-to home when medically improved and reliably tolerating PO without sym ptoms. Monique Trivedi DO [facility] and Anticipated Discharge Date Admission Date: October 12, 2020 Subjective cc: post -ERCP pancreatitis -felt better this morning and tolerated clears for bfast and lunch -IVF turned down from 200cc to 125cc/hr -patient developed some nausea-resolved with zofran -IVF increased to 200cc/hr again -patient improved and asked to advance diet -denies abdominal pain -afebrile -denies CP or SOB Review of Systems Review of Systems: All systems reviewed & are unremarkable except as noted in Subjective Physical Exam Physical Exam: CONSTITUTIONAL: WNWD, vitals as above, generally well- appearing EYES: normal conjunctivae, no scleral icterus ENT: external ear and nose normal, MMM RESPIRATORY: clear to auscultation bilaterally, no crackles, rales or wheezes, normal respiratory effort CARDIOVASCULAR: regular rate and rhythm, S1 and 2 heard without murmurs, gallops or rubs, no JVD, no peripheral edema GASTROINTESTINAL: soft, nontender, slight lower abdominal distension and bloating, no epigastric tenderness, no guarding MUSCULOSKELETAL: strength 5/5 throughout, head is normocephalic and atraumatic SKIN: warm and dry NEUROLOGIC: CN 2-12 grossly intact, normal cognition, normal speech, no tremor. No gross focal deficits. PSYCHIATRIC: alert cooperative and oriented to person, place and time. Results & Data Results & Data ([facility]) Vital Signs (Past 12 Hours) Vital Signs Temp Pulse Resp BP Pulse Ox 10/13/20 06:59 37.3 C 62 18 127/68 97 Laboratory Results [facility] 10/13/20 06:03 Sodium 143 Potassium 3.4 L D Chloride 106 Carbon Dioxide 33 H BUN 5 L D Creatinine 0.50 L Glucose 89 Calcium 8.3 L Liver Function 10/13/20 Range/Units 06:03 Total Bilirubin 0.6 (0.2-1) mg/dl AST 22 (15-37) U/L ALT 30 (12-78) U/L Alkaline Phosphatase 80 (45-117) U/L Albumin 3.2 L (3.4-5.0) gm/dl Medications Administered Current Inpatient Medications Bupropion HCl (Bupropion Xl 300 Mg Tabcr) 300 mg PO QAM [facility] Stop: 11/12/20 08:59 Last Admin: 10/13/20 09:38 Dose: 300 mg Documented by: Dicyclomine HCl (Dicyclomine Hcl 10 Mg Cap) 10 mg PO BID ES Stop: 11/11/20 08:59 Last Admin: 10/13/20 09:00 Dose: 10 mg Documented by: Hydromorphone HCl (Hydromorphone Inj 0.5 Mg/0.5 Ml Syr) 0.5 mg IV Q3H PRN PRN Reason: Pain Stop: 10/26/20 04:43 Last Admin: 10/12/20 19:32 Dose: 0.5 mg Documented by: Famotidine 20 mg/ Syringe 5 mls @ 2.5 mls/min IV BID ES Stop: 11/11/20 08:59 Last Admin: 10/13/20 09:00 Dose: 2.5 mls/min Documented by: Lactated Ringer's (Lr) 1,000 mls @ 125 mls/hr IV .Q8H ES Stop: 11/11/20 04:43 Last Infusion: 10/13/20 12:00 Dose: 125 mls/hr Documented by: Ciprofloxacin (Cipro / D5w) 400 mg in 200 mls @ 100 mls/hr IV Q12H ES; Protoc ol Stop: 10/17/20 07:59 Last Infusion: 10/13/20 10:26 Dose: Infused Documented by: Ketorolac Tromethamine (Ketorolac Tromethamine 15 Mg/Ml Vial) 15 mg IV Q6H PRN PRN Reason: Pain Stop: 10/18/20 00:05 Last Admin: 10/13/20 08:59 Dose: 15 mg Documented by: Multivitamins (Multivitamin Tab) 1 tab PO QDD ES Stop: 11/11/20 16:29 Last Admin: 10/12/20 17:06 Dose: 1 tab Documented by: Ondansetron HCl (Ondansetron Inj 2 Mg/Ml 2 Ml Vial) 4 mg IV Q6H PRN PRN Reason: Nausea Stop: 11/11/20 04:43 Last Admin: 10/12/20 19:31 Dose: 4 mg Documented by:
[2020-10-13] MEDS ORDERED: ONDANSETRON INJ 2 MG/ML 2 ML VIAL IV STA (17:06)
[2020-10-13] MEDS: MULTIVITAMIN TAB PO SCH (19:18)
[2020-10-13] MEDS: HEPARIN SOD 5,000 UNIT/0.5 ML VIAL SQ SCH (21:34)
[2020-10-14] MEDS: LACTATED RINGER'S 1,000 ML IV SCH ×2 (01:20→06:15)
[2020-10-14] MEDS: KETOROLAC TROMETHAMINE 15 MG/ML VIAL IV PRN (04:12)
[2020-10-14 07:20] LABS: Basophils # (auto) 0.05 K/uL (0-0.2); Basophils % (auto) 0.3 %; Eosinophils # (auto) 0.62 K/uL (0-0.5); Eosinophils % (auto) 3.5 %; Hematocrit (blood only) 33.4 % (37-47); Hemoglobin 11.6 g/dL (12.0-16.0); Immature Granulocytes # (auto) 0.04 K/uL (0.00-0.02); Immature Granulocytes % (auto) 0.2 %; Lymphocytes # (auto) 4.43 K/uL (1.2-3.4); Lymphocytes % (auto) 24.9 %; Mean Corpuscular Hemoglobin 32.9 pg (25-34); Mean Corpuscular Hgb Conc 34.7 g/dL (32-36); Mean Corpuscular Volume 94.6 fL (80-100); Mean Platelet Volume 10.4 fL (7.4-10.4); Monocytes # (auto) 2.24 K/uL (0.11-0.59); Monocytes % (auto) 12.6 %; Neutrophils # (auto) 10.44 K/uL (1.4-6.5); Neutrophils % (auto) 58.5 %; Platelet Count 279 K/uL (130-400); RDW Coefficient of Variation 13.1 % (11.5-14.5); RDW Standard Deviation 45.5 fL (36.4-46.3); Red Blood Count 3.53 M/uL (4.2-5.4); White Blood Count 17.82 K/uL (4.8-10.8)
[2020-10-14 07:55] LABS: BUN Creatinine Ratio 7.2 (10-20); Calcium 8.4 mg/dl (8.5-10.1); Est GFR (African American) 126.6; Est GFR (Non-African American) 109.3; Magnesium 1.8 mg/dl (1.8-2.4); Potassium 2.7 mmol/L (3.5-5.1)
[2020-10-14] MEDS: FAMOTIDINE 20 MG in SYRINGE 3 ML IV SCH (08:13)
[2020-10-14] MEDS: DICYCLOMINE HCL 10 MG CAP PO SCH (08:16)
[2020-10-14] MEDS: buPROPion XL 300 MG TABCR PO SCH (08:16)
[2020-10-14] MEDS: CIPROFLOXACIN / D5W 400 MG/200 ML BAG IV SCH (08:16)
[2020-10-14] MEDS: HEPARIN SOD 5,000 UNIT/0.5 ML VIAL SQ SCH (08:16)
[2020-10-14] MEDS ORDERED: POTASSIUM CHLORIDE 40 MEQ in SODIUM CHLORIDE 0.9% 1000ML 1,000 ML IV SCH (11:00)
[2020-10-14] MEDS: POTASSIUM CHLORIDE CRTAB 20 MEQ TABCR PO SCH ×2 (11:13→15:58)
[2020-10-14] MEDS: MULTIVITAMIN TAB PO SCH (15:58)
--- NOTE | 2020-10-14 17:39 | Discharge Summary ---
Date of Service October 14, 2020 Principal Diagnosis post ERCP pancreatitis Hypokalemia Discharge Data Allergies Allergy/AdvReac Type Severity Reaction Status Date / Time erythromycin base Allergy hives Verified 10/12/20 01:56 latex Allergy blisters Verified 10/12/20 01:56 Penicillins Allergy breathing Verified 10/12/20 01:56 issues sulfamethoxazole Allergy facial Verified 10/12/20 01:56 edema Consultations 10/12/20 01:46 ED Decision to Admit Stat 10/12/20 04:44 Consult Case Management - Discharge Planning Routine 10/12/20 08:00 Consult Gastroenterology Routine Hospital Course (1) Acute pancreatitis after endoscopic retrograde cholangiopancreatography (ERCP): Post ERCP pancreatitis 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 Continue IV Zofran as needed She is on prophylactic Cipro for now (2) History of Irina fundoplication: (3) Gastroparesis: status post G-POEM by [facility], history of dumping syndrome, eosinophilic colitis. Follow up with GI as outpatient. Continue scheduled dicyclomine per home regimen. (4) Mood disorder: Cont Welbutrin per home regimen. Admission MAR was updated after confirming correct medication and dose with her outpatient pharmacist by phone. (5) DVT prophylaxis: SCDs/ambulation, Lovenox Full Code Dispo-to home when medically improved and reliably tolerating PO without symptoms. DO [facility] Hospitalist Discharge Plan Discharge Items Patient Disposition: Home - Self-Care Reason For Visit: ACUTE PANCREATITIS Discharge Diagnosis: post ERCP pancreatitis Hypokalemia Follow-up/Referrals: Heidi Castle MD [Primary Care Provider] - 10/19/20 8:20 am Stand-Alone Forms: BDA, Smoking Cessation Medications and DC Order Prescriptions: No Action multivitamin Tablet 1 tab PO QDD RF: 0 dicyclomine 10 mg capsule 10 mg PO BID RF: 0 bupropion HCl 300 mg tablet extended release 24 hr 300 mg PO QAM RF: 0 Admission Data Admit Date/Time: 10/12/20 02:48 Attending Provider: Monique Trivedi Admit Provider: Hood Burgos Primary Care Provider: Heidi Castle Other Providers: Hood Burgos ; Lucie Ayon ; Pretty Dias ; Aaron Doe ; Corrina Langford ; Antwan Puri ; Luis Fernando Roberson ; Laura Pate ; Heriberto Gibbs ; Justin Elias ; Rebekah Dias ; Krista Polanco ; Marlene Delong ; Bety Morris ; Vivian Marroquin
== END 2020-10-14 18:40 | disposition home or self-care (01) | DRG 393 ==
LOC: ED 23:31 → 2W 10-12 02:48 → SUATTDRO 10-12 02:48 → 2W 10-12 03:46 → 3N 10-12 06:40